=== PATIENT | female | born 1985 | race Two or more races ===

== ENCOUNTER 2020-06-09 09:20 | Outpatient (REF) | payer OTHER, SELFPAY ==
[2020-06-09 11:42] LABS: Hemoglobin 15.5 g/dl (12.0-16.0); Mean Corpuscular HGB Conc 33.7 g/dl (31.0-35.0); Mean Corpuscular Hemoglobin 30.9 pg (27.0-33.0); Mean Corpuscular Volume 91.8 fL (80-98); Mean Platelet Volume 12.1 fL (9.4-12.3); Platelet Count 211 X10*3/uL (160-400); Red Blood Count 5.01 X10*6/uL (4.20-5.50); Red Cell Distribution Width 12.1 % (11.0-16.0); White Blood Count 6.4 X10*3/uL (4.8-10.8)
[2020-06-09 12:38] LABS: TSH reflex Free T4 1.05 mIU/mL (0.32-4.0); Vitamin D 25-OH Total 14.3 ng/mL (>30)
[2020-06-09 12:53] LABS: Alanine Aminotransferase 47 U/L (0-31); Albumin Level 4.5 g/dL (3.5-5.0); Alkaline Phosphatase 67 U/L (39-117); Anion Gap 14 (12-20); Aspartate Amino Transferase 26 U/L (5-31); Bilirubin Direct 0.2 mg/dL (0.0-0.5); Bilirubin Total 0.3 mg/dL (0.0-1.0); Blood Urea Nitrogen 11 mg/dL (9-16); Carbon Dioxide 27 mmol/L (22-29); Chloride 102 mmol/L (96-108); Estimated Glomerular Filt Rate > 60; Glucose Random 117 mg/dL (60-115); Potassium 4.5 mmol/l (3.3-5.1); Sodium 138 mmol/L (135-145); Total Protein 7.8 g/dL (6.5-8.0)
== END 2020-06-09 09:21 | disposition home or self-care (01) ==
LOC: HO.HMGCLDS 09:20
PROVIDERS: PCP Internal Medicine; Visit Provider Nurse Practitioner Family
DX: R53.1 Weakness (principal)
CPT/HCPCS: 36415; 80048; 80076; 82306; 84443; 85027; 86618

== ENCOUNTER 2023-02-21 17:09 | Outpatient (AMB) | payer OTHER, SELFPAY ==
--- NOTE | 2023-02-21 17:10 | MHC.PC.OV ---
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: No Accompanied by: Self / Same As Patient Allergies No Known Allergies [No Known Allergies*] Allergy (Verified 02/21/23 17:17) Medication List - Last Reviewed 02/21/23 by ROXANNA Zamudio levonorgestrel (Mirena) intrauterine Tobacco use date assessed: 02/21/23 Dental Screening Dental Screen Date: 02/21/23 Did you have a dental visit in the last 12 months?: Yes Did you have a dental problem in the last 6 months where you did not have access to dental care?: No Was dental information given to patient?: Patient has dentist HPI HPI Comments History of Present Illness Details This is a 37-year-old female that comes for her physical exam. Last Pap smear was 4 years ago and was normal. Had HPV negative and next Pap smear will be next year with OBGYN. No chest pain or shortness of breath. No change in bowel or bladder habits. Has some anxiety and would like to try hydroxyzine. Patient was advised that hydroxyzine can cause sleepiness. [facility], [facility] Surgical History H/O LEEP Family History (Updated 02/21/23 @ 17:20 by Maci Davidson MD) Mother No problems noted. Father Mental health disorder Essential hypertension Diabetes mellitus Stroke Social History Housing: House Alcohol intake: current Alcohol intake frequency: a few times a month Alcohol type: beer, wine and hard liquor Patient Tobacco Use Status: Never used Tobacco e-Cigarette/Vaping Use: Never Used Second Hand Smoke Exposure: No service: No Current occupational status: employed Cognitive needs: No Hearing needs: No Vision needs: No Questionnaire PHQ-9 Over the last 2 weeks, how often have you been bothered by any of the following problems? 1. Little interest or pleasure in doing things: not at all 2. Feeling down, depressed, or hopeless: not at all 3. Trouble falling or staying asleep, or sleeping too much: not at all 4. Feeling tired or having little energy: not at all 5. Poor appetite or overeating: not at all 6. Feeling bad about yourself - or that you are a failure or have let yourself or your family down: not at all 7. Trouble concentrating on things, such as reading the newspaper or watching television: not at all 8. Moving or speaking so slowly that other people could have noticed. Or the opposite - being so fidgety or restless that you have been moving around a lot more than usual: not at all 9. Thoughts that you would be better off or of hurting yourself in some way: not at all Total score: 0 Depression Screening Interpretation: Negative 52682 - PHQ-9 Billing: Yes Source: Developed by Drs. Mick Miller, Quin Douglas, Negro Viera and colleagues, with an educational theresa from [employer]. ZAC-7 AMB Questionnaire ZAC-7 Date ZAC - 7 assessed: 02/21/23 Feeling nervous, anxious, or on edge: 2 = More than half the days Not being able to stop or control worryin = Several days Worrying too much about different things: 3 = Nearly every day Trouble relaxin = Not at all Being so restless that it is hard to sit still: 1 = Several days Becoming easily annoyed or irritable: 0 = Not at all Feeling afraid as if something awful might happen: 0 = Not at all Total ZAC-7 score (0-4 normal; 5-9 mild; 10-14 moderate; 15-21 severe): 7 Source: Developed by Drs. Mick Miller, Quin Douglas, Negro Viera and colleagues, with an educational theresa from [employer]. ZAC-7 Assessment Billing ZAC-7 Assessment Tool: ZAC-7 Assessment [id number] Review of Systems Const All systems reviewed & are unremarkable except as noted in HPI and below Eyes Reports no additional complaints, Denies change in vision and Denies other visual disturbances Card Denies chest pain at rest, Denies chest pain with activity, Denies edema, Denies irregular heart rhythm, Denies claudication, Denies dyspnea, Denies dyspnea on exertion, Denies orthopnea, Denies paroxysmal nocturnal dyspnea and Denies slow heart rate Resp Denies cough, Denies dyspnea and Denies dyspnea on exertion GI Denies abdominal pain, Denies change in bowel habits, Denies excessive flatus, Denies nausea and Denies vomiting Denies urinary incontinence, Denies urinary hesitancy and Denies urinary urgency Musc Denies abnormal gait, Denies atrophy, Denies deformity and Denies limited range of motion Skin/Breast Denies bleeding lesions, Denies changing lesions and Denies rash Neuro Denies abnormal gait and Denies lack of coordination Physical exam (Primary Care) Vital Signs: Last Vital Signs BP 132/80 02/21/23 17:11 BMI result Body Mass Index 35.3 Tobacco/Smoking Status: Tobacco use Status Tobacco use date assessed 02/15/22 02/15/22 16:06 Patient Tobacco Use Status Never used Tobacco 02/15/22 16:27 Tobacco use type Cigarette 02/15/22 16:27 e-Cigarette/Vaping Use Never Used 02/15/22 16:27 Depression Screening Interpretation: Negative Const Orientation/consciousness: patient oriented x3 HENMT Head: Yes normal to inspection, Yes normocephalic and Yes atraumatic Ears: external ears normal Eyes General: appearance normal, both eyes and all related structures Eyelids: Yes eyelids normal Conjunctivae: conjunctivae normal Neck Neck: Yes normal visual inspection and Yes supple Resp Effort & Inspection: normal respiratory effort Auscultation: clear to auscultation bilaterally Cardio Jugular venous distension: no JVD Rate: regular rate Rhythm: regular rhythm Heart sounds: S1 normal heart sound present and S2 normal heart sound present GI Inspection: Yes normal to inspection Palpation (GI): Soft to palpation and nontender Auscultation: normal bowel sounds Skin General skin exam: no rashes or lesions noted Neuro General: patient oriented x3 and no focal motor deficits Extrem General: Yes full ROM Psych Appearance: grossly normal Assessment and Plan Assessment & Plan (1) Physical exam: Code(s): Z00.00 - Encounter for general adult medical examination without abnormal findings Plan: Repeat in a year Orders: Orders Comprehensive Met. Panel Today Z00.00 - Encounter for general adult medical examination without abnormal findings Lipid Panel Today Z00.00 - Encounter for general adult medical examination without abnormal findings Medications: New hydroxyzine HCl 25 mg PO BID 30 days PRN 60 tabs 1RF itching Coding Level of Care Code Est Pt Prev Care 18-39y(97921) Diagnoses Physical exam Z00.00 Additional Codes ZAC-7 Assessment Billing - ZAC-7 Assessment Tool: ZAC-7 Assessment [id number] ([id number]) Time Spent (min) 32
[2023-02-21 17:11] VITALS: BP 132/80; BMI 35.3
== END 2023-02-21 17:29 | disposition home or self-care (01) ==
LOC: HO.HMGH 17:09
PROVIDERS: PCP Internal Medicine; Visit Provider Internal Medicine
DX: Z00.00 Encounter for general adult medical examination without abnormal findings (principal)
CPT/HCPCS: 99395

== ENCOUNTER 2024-02-26 16:05 | Outpatient (AMB) | payer BC, SELFPAY ==
--- NOTE | 2024-02-26 16:06 | MHC.PC.OV ---
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 Accompanied by: Self / Same As Patient Allergies No Known Allergies [No Known Allergies*] Allergy (Verified 02/26/24 16:20) Medication List - Last Reconciled 02/26/24 by Maci Davidson MD bupropion HCl XL (Wellbutrin XL) 300 mg PO QAM guanfacine ER 1 mg PO QPM hydroxyzine HCl 25 mg PO BID PRN 30 days levonorgestrel (Mirena) intrauterine Tobacco use date assessed: 02/26/24 Dental Screening Dental Screen Date: 02/26/24 Did you have a dental visit in the last 12 months?: Yes Did you have a dental problem in the last 6 months where you did not have access to dental care?: No Was dental information given to patient?: Patient has dentist HPI HPI Comments History of Present Illness Details This is a 38-year-old female that comes for her physical exam. Last Pap smear was 5 years ago. Complains of chest congestion that started 3 weeks ago and I will order an antibiotic. No chest pain or shortness on breath. No fever. [facility]LY [facility] Surgical History History of wisdom tooth extraction H/O LEEP Family History (Updated 02/26/24 @ 16:26 by Maci Davidson MD) Mother Arthritis Father Mental health disorder Essential hypertension Diabetes mellitus Stroke Social History Housing: House Alcohol intake: current Alcohol intake frequency: a few times a month Alcohol type: beer, wine and hard liquor Patient Tobacco Use Status: Never used Tobacco e-Cigarette/Vaping Use: Never Used Second Hand Smoke Exposure: No service: No Current occupational status: employed Current occupational exposures/hazards: No Cognitive needs: No Hearing needs: No Vision needs: No Questionnaire PHQ-9 Over the last 2 weeks, how often have you been bothered by any of the following problems? 1. Little interest or pleasure in doing things: not at all 2. Feeling down, depressed, or hopeless: not at all 3. Trouble falling or staying asleep, or sleeping too much: not at all 4. Feeling tired or having little energy: not at all 5. Poor appetite or overeating: not at all 6. Feeling bad about yourself - or that you are a failure or have let yourself or your family down: not at all 7. Trouble concentrating on things, such as reading the newspaper or watching television: not at all 8. Moving or speaking so slowly that other people could have noticed. Or the opposite - being so fidgety or restless that you have been moving around a lot more than usual: not at all 9. Thoughts that you would be better off or of hurting yourself in some way: not at all Total score: 0 Depression Screening Interpretation: Negative Depression Screening Done: Yes [id number] - PHQ-9 Billing: Yes Source: Developed by Drs. Mick Miller, Quin Douglas, Negro Viera and colleagues, with an educational theresa from [employer]. Thrive Questionnaire Date Thrive assessed: 02/26/24 I am a: Patient What is your living situation today?: I have a steady place to live Within the past 12 months, did the food you bought not last and you didn't have the money to get more?: Never true Within the past 12 months, did you worry whether your food would run out before you got money to buy more?: Never true Do you have trouble paying for medicines?: No Do you have trouble getting transportation to medical appointments?: No Do you have trouble paying your heating and electricity bill?: No Do you have trouble taking care of your child, family member or friend?: No Do you have trouble with day-to-day activities such as bathing, preparing meals, shopping, managing finances, etc.?: No Are you currently unemployed and looking for a job?: No Are you interested in more education?: No Please select the resources that you would like help with: None Currently or been in a relationship where the following occur: No concerns reported THRIVE Score: 0 AUDIT C Alcohol Use Questionnaire (AUDIT-C) 1. How often do you have a drink containing alcohol?: Monthly or less 2. How many drinks containing alcohol do you have on a typical day when you are drinking?: 1 or 2 3. How often do you have six or more drinks on one occasion?: Never Total Score: 1 Score Reviewed/Action Taken: No ZAC-7 AMB Questionnaire ZAC-7 Date ZAC - 7 assessed: 02/21/23 Feeling nervous, anxious, or on edge: 3 = Nearly every day Not being able to stop or control worryin = Not at all Worrying too much about different things: 3 = Nearly every day Trouble relaxin = Not at all Being so restless that it is hard to sit still: 0 = Not at all Becoming easily annoyed or irritable: 0 = Not at all Feeling afraid as if something awful might happen: 0 = Not at all Total ZAC-7 score (0-4 normal; 5-9 mild; 10-14 moderate; 15-21 severe): 6 Source: Developed by Drs. Mick Miller, Quin Douglas, Negro Viera and colleagues, with an educational theresa from [employer]. ZAC-7 Assessment Billing ZAC-7 Assessment Tool: ZAC-7 Assessment 86672 Review of Systems Const All systems reviewed & are unremarkable except as noted in HPI and below Card Denies chest pain at rest, Denies chest pain with activity, Denies edema, Denies irregular heart rhythm, Denies claudication, Denies dyspnea, Denies dyspnea on exertion, Denies orthopnea, Denies paroxysmal nocturnal dyspnea and Denies slow heart rate Resp Denies cough, Denies dyspnea and Denies dyspnea on exertion GI Denies abdominal pain, Denies change in bowel habits, Denies excessive flatus, Denies nausea and Denies vomiting Physical exam (Primary Care) Vital Signs: Last Vital Signs BP 126/82 02/26/24 16:07 BMI result Body Mass Index 34.1 BMI Assessment/Plan discussion: High BMI High, discussed plan: lifestyle, weight reduction, dietary and physical activity Tobacco/Smoking Status: Tobacco use Status Tobacco use date assessed 02/26/24 02/26/24 16:15 Patient Tobacco Use Status Never used Tobacco 02/26/24 16:15 Tobacco use type 02/21/23 17:27 e-Cigarette/Vaping Use Never Used 02/26/24 16:15 PHQ-9: PHQ-9 Score PHQ-9: Total score 0 02/26/24 16:23 Depression Screening Interpretation: Negative Thrive Assessment: Date of Thrive Assessment Date Thrive assessed 02/26/24 02/26/24 16:15 Currently or been in a relationship where the following occur: No concerns reported [facility] Head: Yes normal to inspection, Yes normocephalic and Yes atraumatic Ears: external ears normal Eyes General: appearance normal, both eyes and all related structures Eyelids: Yes eyelids normal Conjunctivae: conjunctivae normal Neck Neck: Yes normal visual inspection and Yes supple Resp Effort & Inspection: normal respiratory effort Auscultation: clear to auscultation bilaterally Cardio Jugular venous distension: no JVD Rate: regular rate Rhythm: regular rhythm Heart sounds: S1 normal heart sound present and S2 normal heart sound present GI Inspection: Yes normal to inspection Palpation (GI): Soft to palpation and nontender Auscultation: normal bowel sounds Skin General skin exam: no rashes or lesions noted Neuro General: no focal motor deficits Extrem General: Yes full ROM Psych Appearance: grossly normal Assessment and Plan Assessment & Plan (1) Physical exam: Code(s): Z00.00 - Encounter for general adult medical examination without abnormal findings Plan: Repeat in a year. (2) URI (upper respiratory infection): Code(s): J06.9 - Acute upper respiratory infection, unspecified Qualifiers: URI type: unspecified URI Qualified Code(s): J06.9 - Acute upper respiratory infection, unspecified Plan: Start doxycycline. Orders: Orders Lipid Panel Today Z00.00 - Encounter for general adult medical examination without abnormal findings Comprehensive [place]. Panel Fast Today Z00.00 - Encounter for general adult medical examination without abnormal findings Referrals [facility] [employer] [facility] Referral Z12.4 - Encounter for screening for malignant neoplasm of cervix Medications: New doxycycline hyclate 100 mg PO BID 10 tabs 0RF 5 days fluconazole may repeat second dose 72 hrs after first dose if symptoms persist 150 mg PO Q3D 2 tabs 0RF 2 doses Coding Level of Care Code Est Pt Level 3 (42328) Est Pt Prev Care 18-39y(81996) Diagnoses Physical exam Z00.00 Upper respiratory tract infection, unspecified type J06.9 URI type: unspecified URI Additional Codes ZAC-7 Assessment Billing - ZAC-7 Assessment Tool: ZAC-7 Assessment 31339 ([id number]) Time Spent (min) 33
[2024-02-26 16:07] VITALS: BP 126/82; BMI 34.1
== END 2024-02-26 16:32 | disposition home or self-care (01) ==
PROVIDERS: PCP Internal Medicine; Visit Provider Internal Medicine
DX: Z00.00 Encounter for general adult medical examination without abnormal findings (principal); J06.9 Acute upper respiratory infection, unspecified
CPT/HCPCS: 99213; 99395

== ENCOUNTER 2024-03-17 07:57 | Outpatient (REF) | payer BC, SELFPAY ==
--- NOTE | 2024-03-17 | ECG_ITS ---
Test Reason : f90.9 Blood Pressure : / mmHG Vent. Rate : 082 BPM Atrial Rate : 082 BPM P-R Int : 142 ms QRS Dur : 072 ms QT Int : 366 ms P-R-T Axes : 054 010 028 degrees QTc Int : 427 ms Normal sinus rhythm with sinus arrhythmia Normal ECG No previous ECGs available Referred By: Maci Davidson Electronically Signed By:PADMINI ALVARES
[2024-03-17 09:12] LABS: Amphetamine Screen Urine Not Detected (Not Detect); Barbiturates, Urine Not Detected (Not Detect); Benzodiazepines Screen Urine Not Detected (Not Detect); Buprenorphine Scr Not Detected (Not Detect); Cannabinoid Screen Urine Not Detected (Not Detect); Cocaine Screen Urine Not Detected (Not Detect); Fentanyl, urine Not Detected (Not Detect); Methadone Screen, Urine Not Detected (Not Detect); Opiate Screen Urine Not Detected (Not Detect); Oxycodone Screen Urine Not Detected (Not Detect); Phencyclidine Screen Urine Not Detected (Not Detect)
[2024-03-17 09:45] LABS: Alanine Aminotransferase 47 U/L (0-31); Alkaline Phosphatase 67 U/L (39-117); Anion Gap 10 (12-20); Aspartate Amino Transferase 29 U/L (5-31); Bilirubin Total 0.5 mg/dL (0.0-1.0); Blood Urea Nitrogen 12 mg/dL (9-16); Calcium 8.7 mg/dL (8.4-10.2); Carbon Dioxide 27 mmol/L (22-29); Chloride 102 mmol/L (96-108); Cholesterol 162 mg/dL (<200); Estimated Glomerular Filt Rate > 60; Glucose Fasting 228 mg/dL (60-99); HDL Cholesterol 45 mg/dL (>40); LDL Cholesterol Calculated 94 mg/dL (<100); Potassium 4.1 mmol/L (3.3-5.1); Sodium 135 mmol/L (135-145); Total Protein 7.3 g/dL (6.5-8.0); Triglycerides 116 mg/dL (<150)
== END 2024-03-17 07:58 | disposition home or self-care (01) ==
LOC: HO.LAB 07:57
PROVIDERS: Registered Nurse Psychiatric/Mental Health; PCP Internal Medicine; Visit Provider Internal Medicine
DX: F90.9 Attention-deficit hyperactivity disorder, unspecified type (principal); Z00.00 Encounter for general adult medical examination without abnormal findings
CPT/HCPCS: 36415; 80053; 80061; 80307; 93005

== ENCOUNTER → 2024-03-17 08:38 | Outpatient (BNV) | payer BC, SELFPAY | PROVIDERS: PCP Internal Medicine; Visit Provider Internal Medicine | DX: Z00.00 Encounter for general adult medical examination without abnormal findings (principal) | CPT/HCPCS: 93010 ==

== ENCOUNTER 2024-03-25 07:50 | Outpatient (AMB) | payer BC, SELFPAY ==
[2024-03-25 07:54] VITALS: BP 126/82; BMI 34.6
--- NOTE | 2024-03-25 07:54 | A.OFFPC_ITS ---
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 Accompanied by: Self / Same As Patient Allergies No Known Allergies [No Known Allergies*] Allergy (Verified 03/25/24 08:01) Medication List - Last Reconciled 03/25/24 by Maci aDvidson MD blood sugar diagnostic (FreeStyle Lite Strips) Use 1 test strip once a day blood-glucose meter (FreeStyle Lite Meter kit) As directed bupropion HCl XL (Wellbutrin XL) 300 mg PO QAM hydroxyzine HCl 25 mg PO BID PRN 30 days lancets (FreeStyle Lancets) Use 1 lancet once a day levonorgestrel (Mirena) intrauterine metformin 500 mg PO BID 90 days Tobacco use date assessed: 02/26/24 Dental Screening Dental Screen Date: 02/26/24 HPI HPI Comments History of Present Illness Details This is a 39-year-old female with recently diagnosed diabetes mellitus that comes today complaining of a chronic cough that has been present for about 2-3 months associated with some phlegm. Denies any fever or chest congestion. She has tried different antihistamines and antibiotic with no significant relief. Denies any heartburn. There is no time of the day in which cough worsens. No aggravating or relieving factors. I will order chest x-ray but her lungs are clear. Will refer her to pulmonology. Her A1c is elevated and she just started metformin 2 days ago with no side effects. She will book an appointment for an tube draw helper for diabetic eye exam. Her sugar today fasting was 187. Her LDL is not on goal and dietary changes were advised for now. She is obese with a BMI of 34.6 and was advised to do diet and exercise to reach BMI goal less than 30. She also complains of stress urinary incontinence when coughing that has been more prominent for the past 2 months. No chest pain or shortness on breath. She would like to see Urology for her incontinence. [facility] Surgical History History of wisdom tooth extraction H/O LEEP Family History Mother Arthritis Father Mental health disorder Essential hypertension Diabetes mellitus Stroke Social History Housing: House Alcohol intake: current Alcohol intake frequency: a few times a month Alcohol type: beer, wine and hard liquor Patient Tobacco Use Status: Never used Tobacco e-Cigarette/Vaping Use: Never Used Second Hand Smoke Exposure: No service: No Current occupational status: employed Current occupational exposures/hazards: No Cognitive needs: No Hearing needs: No Vision needs: No Questionnaire Thrive Questionnaire Date Thrive assessed: 02/26/24 ZAC-7 AMB Questionnaire ZAC-7 Date ZAC - 7 assessed: 02/21/23 Source: Developed by Drs. Mick Miller, Quin Douglas, Negro Viera and colleagues, with an educational theresa from [employer]. Review of Systems Const All systems reviewed & are unremarkable except as noted in HPI and below Card Denies chest pain at rest, Denies chest pain with activity, Denies edema, Denies irregular heart rhythm, Denies claudication, Denies dyspnea, Denies dyspnea on exertion, Denies orthopnea, Denies paroxysmal nocturnal dyspnea and Denies slow heart rate Resp Reports cough, Denies dyspnea and Denies dyspnea on exertion Physical exam (Primary Care) Vital Signs: Last Vital Signs BP 126/82 03/25/24 07:54 BMI result Body Mass Index 34.6 BMI Assessment/Plan discussion: High BMI High, discussed plan: lifestyle, weight reduction, dietary and physical activity Tobacco/Smoking Status: Tobacco use Status Tobacco use date assessed 02/26/24 03/25/24 07:57 Patient Tobacco Use Status Never used Tobacco 03/25/24 07:57 Tobacco use type 02/21/23 17:27 e-Cigarette/Vaping Use Never Used 03/25/24 07:57 Thrive Assessment: Date of Thrive Assessment Date Thrive assessed 02/26/24 03/25/24 07:57 Resp Effort & Inspection: normal respiratory effort Auscultation: clear to auscultation bilaterally Cardio Jugular venous distension: no JVD Rate: regular rate Rhythm: regular rhythm Heart sounds: S1 normal heart sound present and S2 normal heart sound present Extrem General: Yes full ROM Results AMB Hemoglobin A1c AMB Hemoglobin A1c 8.0 % Last Edit by ROXANNA Zamudio on 03/25/24 08:1 2 Results Reviewed Results Reviewed: Laboratory Last Values Hgb A1c (Clinic) 8.0 % (4.0-6.0) H 03/25/24 08:03 Assessment and Plan Assessment & Plan (1) Chronic cough: Code(s): R05.3 - Chronic cough Plan: Chest x-ray ordered. Start Tessalon Perles. Follow-up with pulmonology. (2) Diabetes mellitus: Code(s): E11.9 - Type 2 diabetes mellitus without complications Plan: Continue metformin. A1c goal is equal or less than 7%. Diabetic eye exam yearly. (3) Class 1 obesity with body mass index (BMI) of 34.0 to 34.9 in adult: Code(s): E66.9 - Obesity, unspecified; Z68.34 - Body mass index [BMI] 34.0-34.9, adult Plan: Start diet and exercise. BMI goal is less than 30. (4) JAXON (stress urinary incontinence, female): Code(s): N39.3 - Stress incontinence (female) (male) Plan: Referred to urology. Continue Kegel exercises. Orders: Orders XR chest 2V Today R05.3 - Chronic cough AMB Hemoglobin A1c Today E11.9 - Type 2 diabetes mellitus without complications Referrals Urology Referral N39.3 - Stress incontinence (female) (male) Pulmonology Referral R05.3 - Chronic cough Medications: New benzonatate 100 mg PO BID 5 days PRN 10 caps 0RF cough Coding Level of Care Code Est Pt Level 4 (61135) Complex EM visit Add On G2211 Diagnoses Chronic cough R05.3 Diabetes mellitus E11.9 Class 1 obesity with body mass index (BMI) of 34.0 to 34.9 in adult E66.9; Z68.34 JAXON (stress urinary incontinence, female) N39.3 Time Spent (min) 24
== END 2024-03-25 08:24 | disposition home or self-care (01) ==
PROVIDERS: PCP Internal Medicine; Visit Provider Internal Medicine
DX: R05.3 Chronic cough (principal); E11.9 Type 2 diabetes mellitus without complications; E66.9 Obesity, unspecified; Z68.34 Body mass index [BMI] 34.0-34.9, adult; N39.3 Stress incontinence (female) (male)
CPT/HCPCS: 83036; 99214

== ENCOUNTER 2024-03-25 08:30 | Outpatient (REF) | payer BC, SELFPAY ==
--- NOTE | ~2024-03-25 | XR_ITS ---
EXAMINATION: XR CHEST 2 VIEWS CLINICAL INFORMATION: Chronic cough. COMPARISON: Chest radiographs dated 08/23/2015. TECHNIQUE: Frontal and lateral views of the chest were obtained. FINDINGS: The heart, great vessels, pulmonary vasculature and mediastinum are normal. The lungs show no focal infiltrate, effusion or pneumothorax. There is no acute osseous abnormality. XR/XR chest 2V IMPRESSION: No active cardiopulmonary disease. Electronically signed by: Adair Ruffin MD 04/16/2024 06:50 PM EDT
== END 2024-03-25 08:31 | disposition home or self-care (01) ==
LOC: HO.XRAY 08:30
PROVIDERS: PCP Internal Medicine; Visit Provider Internal Medicine
DX: R05.3 Chronic cough (principal)
CPT/HCPCS: 71046

== ENCOUNTER 2024-04-13 10:26 | Outpatient (REF) | payer BC, SELFPAY ==
[2024-04-13 11:46] LABS: MANUAL DIFF FLAG NO
[2024-04-13 12:04] LABS: Basophils Percent Auto 0.4 % (0-2); Eosinophils Absolute Auto 0.1 X10*3/uL (0.0-0.4); Eosinophils Percent Auto 0.7 % (0-4); Hematocrit 44.3 % (37.0-47.0); Imm Gran Abs Auto 0.02 X10*3/uL (0.00-0.03); Imm Gran Pct Auto 0.3 % (0.0-0.4); Lymphocytes Absolute Auto 1.6 X10*3/uL (1.2-4.9); Lymphocytes Percent Auto 22.9 % (20-40); Mean Corpuscular HGB Conc 33.9 g/dl (31.0-35.0); Mean Corpuscular Hemoglobin 30.7 pg (27.0-33.0); Mean Corpuscular Volume 90.6 fL (80.0-98.0); Mean Platelet Volume 11.5 fL (9.4-12.3); Monocytes Absolute Auto 0.4 X10*3/uL (0.1-1.2); Monocytes Percent Auto 5.6 % (2-11); Neutrophils Percent Auto 70.1 % (45-73); Platelet Count 226 X10*3/uL (160-400); Red Blood Count 4.89 X10*6/uL (4.20-5.50); Red Cell Distribution Width 12.1 % (11.0-16.0); White Blood Count 7.1 X10*3/uL (4.8-10.8)
[2024-04-14 21:53] LABS: Class Alternaria alternata 0; Class Aspergillus fumigatus 0; Class Bermuda Grass 0; Class Birch 0; Class Cat Dander 0; Class Cladosporium herbarum 0; Class Cockroach 0; Class Common Ragweed 0; Class Cottonwood 0; Class Derm. pterony 0; Class Dermatophagoides farinae 0; Class Dog Dander 0; Class Elm 0; Class Maple Box Elder 0; Class Mountain Cedar 0; Class Mouse Urine Protein 0; Class Mugwort 0; Class Oak 0; Class Penicillium crysogenum 0; Class Rough Pigweed 0; Class Sheep Sorrel 0; Class Sycamore 0; Class Timothy Grass 0; Class Walnut Tree 0; Class White Ash 0; Class White Mulberry 0; D001 IgE D pteronyssinus <0.10 kU/L; D002 - IgE D farinae <0.10 kU/L; E001 - IgE Cat Dander <0.10 kU/L; E005 - IgE Dog Dander <0.10 kU/L; E072-IgE Mouse Urine <0.10 kU/L; G002 IgE Bermuda Grass <0.10 kU/L; G006 - IgE Timothy Grass <0.10 kU/L; I006-IgE Cockroach, German <0.10 kU/L; Immunoglobulin E 17 kU/L (<OR=114); M001 IgE Penicillium chrysogen <0.10 kU/L; M002 - IgE Cladosporium herbar <0.10 kU/L; M003 - IgE Aspergillus fumigat <0.10 kU/L; M006 - IgE Alternaria alternat <0.10 kU/L; T001 IgE Maple/Box Elder <0.10 kU/L; T003 IgE Common Silver Birch <0.10 kU/L; T006 - IgE Cedar, Mountain <0.10 kU/L; T007 - IgE Oak, White <0.10 kU/L; T008 IgE Elm, American <0.10 kU/L; T010 - IgE Walnut <0.10 kU/L; T011 - IgE Maple Leaf Sycamore <0.10 kU/L; T014 - IgE Cottonwood <0.10 kU/L; T015 - IgE Ash, White <0.10 kU/L; T070 - IgE White Mulberry <0.10 kU/L; W001 - IgE Ragweed, Short <0.10 kU/L; W006 - IgE Mugwort <0.10 kU/L; W014 IgE Pigweed, Common <0.10 kU/L; W018 IgE Sheep Sorrel <0.10 kU/L
== END 2024-04-13 10:27 | disposition home or self-care (01) ==
LOC: HO.LAB 10:26
PROVIDERS: PCP Internal Medicine; Referring Provider Internal Medicine; Visit Provider Nurse Practitioner Family
DX: Z91.09 Other allergy status, other than to drugs and biological substances (principal)
CPT/HCPCS: 36415; 82785; 85025; 86003

== ENCOUNTER 2024-04-13 10:26 | Outpatient (AMB) | payer BC, SELFPAY ==
--- NOTE | 2024-04-12 21:03 | MHC.OFFVIS ---
Vital Signs 04/13/24 10:40 Height 5 ft 9 in Weight 230 lb 6.129 oz BMI 34.0 BP 130/96 H Blood Pressure Location Rt brachial Position Sitting Pulse 102 H Pulse Source Pulse Oximeter Pulse Oximetry (%) 99 Oxygen Delivery Method Room Air Intake Visit Reasons: Chronic cough Allergies No Known Allergies [No Known Allergies*] Allergy (Verified 04/13/24 10:43) HPI HPI Chronic cough: Details: Delfino is a pleasant 39 year old female, never smoker, with underlying DMII. She was referred by PCP for pulmonary evaluation. She reports productive cough with whitish sputum for the last 2 months. She denies chest tightness, wheezing or dyspnea. She denies any fevers, chills or chest congestion. She denies any aggravating or relieving factors. She was trialed on antihistamines as well as flonase and doxycyline, without relief. She did note some relief with tessalon perles. She denies prior h/o asthma. She denies any GERD symptoms. She denies any post nasal drip. CXR performed however not officially read. She reports seasonal allergies, no recent allergy testing. She denies any occupational exposures. She denies any pertinent family history. [facility] Surgical History History of wisdom tooth extraction H/O LEEP Family History Mother Arthritis Father Mental health disorder Essential hypertension Diabetes mellitus Stroke Social History Housing: House Alcohol intake: current Alcohol intake frequency: a few times a month Alcohol type: beer, wine and hard liquor Patient Tobacco Use Status: Never used Tobacco e-Cigarette/Vaping Use: Never Used Second Hand Smoke Exposure: No service: No Current occupational status: employed Current occupational exposures/hazards: No Cognitive needs: No Hearing needs: No Vision needs: No Review of Systems Const Denies chills, Denies excessive sweating, Denies fever(s), Denies headache(s) and Denies night sweats Eyes Denies dry eyes, Denies irritation and Denies itchy eyes ENT Reports Normal hearing present, Denies headache(s), Denies nasal congestion, Denies nasal discharge, Denies post nasal drip and Denies sore throat Card Denies chest pain, Denies chest pain at rest, Denies chest pain with activity, Denies claudication, Denies leg edema, Denies dyspnea, Denies dyspnea on exertion, Denies orthopnea and Denies paroxysmal nocturnal dyspnea Resp Denies chest congestion, Reports cough, Denies excessive phlegm production, Denies pain on inspiration, Denies pain with cough, Denies dyspnea, Denies dyspnea on exertion, Denies stridor and Denies wheezing Musc Denies myalgias Neuro Reports Normal hearing present and Denies headache(s) Endo Denies excessive sweating Ajay/Lymph Denies lymphadenopathy Aller/Immun Denies itchy eyes, Denies seasonal rhinorrhea and Denies wheezing Physical Exam Vital Signs: Last Vital Signs Pulse 102 H 04/13/24 10:40 BP 130/96 H 04/13/24 10:40 Pulse Ox 99 04/13/24 10:40 Oxygen Delivery Method Room Air 04/13/24 10:40 BMI result Body Mass Index 34.0 Const General: cooperative, healthy appearing, comfortable, no acute distress, well developed and alert Nutritional Appearance: obese Orientation/consciousness: patient oriented x3 Limitations: no limitations HEENT Head: Yes normal to inspection, Yes normocephalic and Yes atraumatic Ears: hearing grossly normal bilaterally and external ears normal Eyes General: appearance normal, both eyes and all related structures Eyelids: Yes eyelids normal Sclerae: sclerae normal EOM: EOMs intact bilaterally Neck Neck: Yes normal visual inspection and Yes no lymphadenopathy Lymphatic: no lymphadenopathy noted Chest Chest palpation & inspection: normal inspection of the chest Resp Other: post exhalation cough Effort & Inspection: normal respiratory effort, able to speak in complete sentences, no audible wheezes, Actively coughing, no stridor, not tachypneic, no tripod positioning and no use of accessory muscles Auscultation: diminished lung sounds Cardio Jugular venous distension: no JVD Rate: regular rate Rhythm: regular rhythm Skin Other: warm, dry General skin exam: no rashes or lesions noted Neuro General: patient oriented x3 Cranial nerves: Yes Normal hearing present Cognition (Neuro): normal cognition Gait exam (Neuro): Normal gait present Extrem General: Yes normal to inspection, Yes capillary refill normal, Yes no clubbing, cyanosis or edema and Yes no pedal edema Psych Appearance: grossly normal and well kempt Speech and movement: Normal speech and movement present and Clear speech present Affect: normal affect Attitude: cooperative Thought process: Normal thought process present Thought content: Normal thought content present Insight: Good insight present (Psych) Judgement: Good judgement present (Psych) Assessment & Plan Assessment & Plan (1) Reactive airway disease: Code(s): J45.909 - Unspecified asthma, uncomplicated Category: Medical (2) Chronic cough: Code(s): R05.3 - Chronic cough Category: Medical (3) Environmental allergies: Code(s): Z91.09 - Other allergy status, other than to drugs and biological substances Category: Medical Plan Delfino presents for evaluation for persistent cough minimal responsive to antihistamines, flonase, and doxycycline. There may be a component of asthma/RAD, will send for PFT and trial albuterol PRN. Will send for RAST as she notes seasonal alleriges. Given postexhalation on exam, will give prednisone. Consider chest CT once CXR resulted. All questions were answered and patient is in agreement of plan. Will follow up to review results or sooner if needed. Orders: Orders Complete Blood Count Auto Diff Today Z91.09 - Other allergy status, other than to drugs and biological substances Resp Allergy Profile Region I Today Z91.09 - Other allergy status, other than to drugs and biological substances Immunoglobulin E Today Z91.09 - Other allergy status, other than to drugs and biological substances PFT pulmonary function test Today R05.3 - Chronic cough Medications: New albuterol sulfate 90 mcg/actuation 2 puffs inhalation Q4-6H PRN 1 ea 2RF shortness of breath or wheezing prednisone 40 mg (2 x 20 mg) PO DAILY 10 tabs 0RF Coding Level of Care Code New Pt Level 3 (85727) Diagnoses Reactive airway disease J45.909 Chronic cough R05.3 Environmental allergies Z91.09
[2024-04-13 10:40] VITALS: BP 130/96; PULSE 102; O2SAT 99; BMI 34.0
== END 2024-04-13 11:13 | disposition home or self-care (01) ==
PROVIDERS: PCP Internal Medicine; Referring Provider Internal Medicine; Visit Provider Nurse Practitioner Family
DX: J45.909 Unspecified asthma, uncomplicated (principal); R05.3 Chronic cough; Z91.09 Other allergy status, other than to drugs and biological substances
CPT/HCPCS: 99203

== ENCOUNTER 2024-05-06 15:52 | Outpatient (REF) | payer BC, SELFPAY ==
--- NOTE | 2024-05-06 16:26 | PFT_ITS ---
Flows: FEV1: 93 % of predicted at 3.35 L FVC: 95 % of predicted at 4.20 L FEV1/FVC: 80 % Bronchodilator response: Present in small to medium airways only Volumes: Total lung capacity: 87 % of predicted at 5.36 L Residual volume: 77 % of predicted at 1.17 L Slow vital capacity: 90 % of predicted at 4.20 L Expiratory reserve volume: 69 % of predicted at 1.07 L Diffusion capacity: Normal Impression: No obstructive or restrictive ventilatory defect. Bronchodilator response present in small to medium airways only. MTDD
== END 2024-05-06 15:53 | disposition home or self-care (01) ==
LOC: HO.RESP 15:52
PROVIDERS: PCP Internal Medicine; Visit Provider Nurse Practitioner Family
DX: R05.3 Chronic cough (principal)
CPT/HCPCS: 94010; 94640; 94727; 94729

== ENCOUNTER → 2024-05-06 16:26 | Outpatient (BNV) | payer BC, SELFPAY | PROVIDERS: PCP Internal Medicine; Visit Provider Internal Medicine Pulmonary Disease | DX: R05.3 Chronic cough (principal) | CPT/HCPCS: 94060; 94727; 94729 ==

== ENCOUNTER 2024-05-19 07:55 | Outpatient (AMB) | payer BC, SELFPAY ==
--- NOTE | 2024-05-19 08:10 | A.OFFVIS_ITS ---
Intake Visit Reasons: stress incontinence Allergies No Known Allergies [No Known Allergies*] Allergy (Verified 05/19/24 08:43) Medication List - Last Reconciled 05/19/24 by NANETTE Hobson albuterol sulfate 90 mcg/actuation 2 puffs inhalation Q4-6H PRN blood sugar diagnostic (FreeStyle Lite Strips) Use 1 test strip once a day blood-glucose meter (FreeStyle Lite Meter kit) As directed hydroxyzine HCl 25 mg PO BID PRN 30 days lancets (FreeStyle Lancets) Use 1 lancet once a day levonorgestrel (Mirena) intrauterine metformin 500 mg PO BID 90 days methylphenidate HCl ER (Concerta) 27 mg PO DAILY prednisone 40 mg (2 x 20 mg) PO DAILY HPI Comments Details: Delfino is a very pleasant 39-year-old female patient of Dr. Farr. She has a past medical history of ADD and diabetes. She presents to the office today as a new patient for stress incontinence. In discussion with the patient today she reports symptoms have been present since her early 30s. She reports feeling stress incontinence presented 6-8 years ago. She does report having had 1 vaginal and labor was quick. She reports initially when she discussed this issue with her PCP 6-8 years ago she tried a medication however does not recall the name. She reports having had no benefit and therefore stopped taking the medication. She reports having followed up with her PCP for annual physical and has recently been diagnosed with diabetes and has started metformin and is trying to manage with diet control. She otherwise denies urinary urgency, urinary frequency, nocturia, hematuria, dysuria, foul smelling urine, changes to urinary stream, flank pain, fever, and or chills. In office urinalysis results reviewed with the patient today. We discussed at length potential causes of stress incontinence as well as further treatment options. Risks and benefits of these treatment options were discussed. Discussed obtaining retroperitoneal ultrasound for further assessment evaluation. She otherwise offers no other issues or concerns at this time. [facility] Surgical History History of wisdom tooth extraction H/O LEEP Family History Mother Arthritis Father Mental health disorder Essential hypertension Diabetes mellitus Stroke Social History Housing: House Alcohol intake: current Alcohol intake frequency: a few times a month Alcohol type: beer, wine and hard liquor Patient Tobacco Use Status: Never used Tobacco e-Cigarette/Vaping Use: Never Used Second Hand Smoke Exposure: No service: No Current occupational status: employed Current occupational exposures/hazards: No Cognitive needs: No Hearing needs: No Vision needs: No Review of Systems Const All systems reviewed & are unremarkable except as noted in HPI and below Physical Exam Const General: cooperative, healthy appearing, comfortable, no acute distress, well developed, alert and awake Orientation/consciousness: patient oriented x3 Limitations: no limitations HEENT Head: Yes normal to inspection, Yes normocephalic and Yes atraumatic Ears: hearing grossly normal bilaterally Eyes General: appearance normal, both eyes and all related structures Neck Neck: Yes normal visual inspection and Yes trachea midline Chest Chest palpation & inspection: normal inspection of the chest Resp Effort & Inspection: normal respiratory effort and able to speak in complete sentences Cardio Rate: regular rate GI Inspection: Yes normal to inspection General: Yes no CVA tenderness Back/Spine/Pelvis Back: no CVA tenderness Skin General skin exam: no rashes or lesions noted Neuro General: patient oriented x3 Extrem General: Yes normal to inspection Psych Appearance: grossly normal and well kempt Mental Status: mental status grossly normal Speech and movement: Normal speech and movement present and Clear speech present Affect: normal affect Attitude: cooperative Thought process: Normal thought process present Thought content: Normal thought content present Insight: Fair insight present (Psych) Judgement: Fair judgement present (Psych) Office Procedures Post Void Residual Post Residual Void Post Void Residual (PVR): 21 [id number] Void Residual by ultrasound Results AMB Urinalysis, Automated UA Leukoctes 0 Therese/uL Last Edit by Stefan Snow LPN on 05/19/24 08:11 UA Nitrite Negative Last Edit by Stefan Snow LPN on 05/19/24 08:11 UA Urobilinogen 0.2 mg/dL Last Edit by Stefan Snow LPN on 05/19/24 08:11 UA Protein 15 mg/dL Last Edit by Stefan Snow LPN on 05/19/24 08:11 UA pH 5.5 Last Edit by Stefan Snow LPN on 05/19/24 08:11 UA Blood 0 Dameon/uL Last Edit by Stefan Snow LPN on 05/19/24 08:11 UA Specific [place] 1.020 Last Edit by Stefan Snow LPN on 05/19/24 08:11 UA Ketone Negative Last Edit by Stefan Sonw LPN on 05/19/24 08:11 UA Bilirubin 0 mg/dL Last Edit by Stefan Snow LPN on 05/19/24 08:11 UA Glucose 1000 mg/dL Last Edit by Stefan Snow LPN on 05/19/24 08:11 Results Reviewed Results Reviewed: Laboratory Last Values Urine pH (Auto) 5.5 05/19/24 08:10 Specific [place] (Auto) 1.020 05/19/24 08:10 Urine Protein (Auto) 15 mg/dL 05/19/24 08:10 Glucose (UA)(Auto) 1000 mg/dL 05/19/24 08:10 Urine Ketones (Auto) Negative 05/19/24 08:10 Urine Blood (Auto) 0 Dameon/uL 05/19/24 08:10 Urine Nitrite (Auto) Negative 05/19/24 08:10 Urine Bilirubin (Auto) 0 mg/dL 05/19/24 08:10 Urine Urobilinogen (Auto) 0.2 mg/dL 05/19/24 08:10 Leukocyte Esterase (Auto) 0 Therese/uL 05/19/24 08:10 Assessment & Plan Assessment & Plan (1) JAXON (stress urinary incontinence, female): Code(s): N39.3 - Stress incontinence (female) (male) Category: Medical Plan In office urinalysis results reviewed with the patient today; as noted above. Information provided for pelvic floor ex.ercises Will obtain retroperitoneal ultrasound for further assessment evaluation. Discussed, educated, and stressed the importance of managing diabetes for improvement in lower urinary tract symptoms as well as overall health and well- being. Discussed further treatment options of stress incontinence; risks and benefits of these interventions were discussed. We discussed bladder triggers/irritants Will schedule for in office urodynamics Follow-up with imaging to be completed prior; or sooner with any issues, concerns, and or questions. Orders: Orders AMB Urinalysis Automated Today N39.3 - Stress incontinence (female) (male) AMB Post Void Residual by ultrasound Today N39.3 - Stress incontinence (female) (male) US retroperitoneal comp Today N39.3 - Stress incontinence (female) (male) Patient Instructions: The patient had an opportunity to ask questions regarding the treatment plan. All questions were answered. Physical exam, labs, and imaging were discussed and reviewed in detail. As well as risks, benefits, and discussion of treatment choices. No major barriers to understanding were identified. The patient expressed understanding and agreement with the above treatment plan. The patient was made aware they should contact our office by phone for worsening of their current condition, the appearance of new symptoms, or with any questions or concerns. Compliance is encouraged with any medications and follow up testing that is ordered. It is a privilege to be allowed the opportunity to participate in? your urological care.? Again, if you have any questions or concerns If you have any questions or concerns please do not hesitate to contact me. The office is [phone]. This note is constructed using voice recognition software. While every effort has been made to ensure accuracy production truck driver errors may have been included. Yours sincerely, NANETTE Hobson Coding Level of Care Code New Pt Level 4 (45898) Diagnoses JAXON (stress urinary incontinence, female) N39.3 CPT Codes Post Residual Void - PVR CPT Code: 60393-[id number] Void Residual by ultrasound ([id number]) Time Spent (min) 35
== END 2024-05-19 08:59 | disposition home or self-care (01) ==
PROVIDERS: PCP Internal Medicine; Visit Provider Nurse Practitioner Family
DX: N39.3 Stress incontinence (female) (male) (principal)
CPT/HCPCS: 99204

== ENCOUNTER → 2024-05-19 07:55 | Outpatient (BNVA) | payer BC, SELFPAY | PROVIDERS: PCP Internal Medicine; Visit Provider Nurse Practitioner Family | DX: N39.3 Stress incontinence (female) (male) (principal) | CPT/HCPCS: 51798; 81003 ==

== ENCOUNTER 2024-05-22 15:57 | Outpatient (REF) | payer BC, SELFPAY ==
--- NOTE | ~2024-05-22 | US_ITS ---
EXAMINATION: US RETROPERITONEAL COMPLETE (RENAL) CLINICAL INFORMATION: Stress incontinence. COMPARISON: Ultrasound abdomen complete 06/11/2019. TECHNIQUE: Real-time imaging of the kidneys and bladder. FINDINGS: RIGHT KIDNEY: 12.7 x 5.5 x 4.7 cm (SAG x AP x TRV). The kidney is normal in size, contour, and echogenicity. Renal cortical thickness is normal. No calculi or focal parenchymal lesions. No hydronephrosis. LEFT KIDNEY: 12.9 x 6.8 x 4.6 cm (SAG x AP x TRV). The kidney is normal in size, contour, and echogenicity. Renal cortical thickness is normal. No calculi or focal parenchymal lesions. No hydronephrosis. BLADDER: Well distended and normal. Bilateral ureteral jets are demonstrated. Prevoid bladder volume is 248 mL. Postvoid bladder volume is 18.4 mL. US/US retroperitoneal comp IMPRESSION: Normal exam. Electronically signed by: Eze Wilkinson MD 06/19/2024 01:53 PM EST
== END 2024-05-22 15:58 | disposition home or self-care (01) ==
LOC: HO.US 15:57
PROVIDERS: PCP Internal Medicine; Visit Provider Nurse Practitioner Family
DX: N39.3 Stress incontinence (female) (male) (principal)
CPT/HCPCS: 76770

== ENCOUNTER → 2024-05-22 15:59 | Outpatient (BNV) | payer BC, SELFPAY | PROVIDERS: PCP Internal Medicine; Visit Provider Radiology Diagnostic Radiology | DX: N39.3 Stress incontinence (female) (male) (principal) | CPT/HCPCS: 76770 ==

== ENCOUNTER 2024-05-25 15:56 | Outpatient (AMB) | payer BC, SELFPAY ==
[2024-05-25 15:59] VITALS: BP 118/90; PULSE 91; O2SAT 99; BMI 33.0
--- NOTE | 2024-05-25 15:59 | A.OFFVIS_ITS ---
Vital Signs 05/25/24 15:59 Height 5 ft 9 in Weight 223 lb 12.307 oz BMI 33.0 BP 118/90 H Blood Pressure Location Lt brachial Position Sitting Pulse 91 Pulse Source Pulse Oximeter Pulse Oximetry (%) 99 Oxygen Delivery Method Room Air Intake Visit Reasons: Cough/PFT Follow Up Allergies No Known Allergies [No Known Allergies*] Allergy (Verified 05/25/24 16:02) HPI HPI Cough/PFT Follow Up: Details: Delfino is a pleasant 39 year old female, never smoker, with underlying DMII. She was initially referred for persistent productive cough for 2 months with no prior history of asthma. She had trialed multiple medications including antihistamines, Flonase and doxycycline with minimal relief. At the last visit she had persistent post exploration cough and was treated with prednisone. She reports complete resolution of cough and denies any dyspnea, chest tightness, or wheezing. She has a prescription for albuterol however has not required in quite some time. Today she presents to review PFT results. [facility] Surgical History History of wisdom tooth extraction H/O LEEP Family History Mother Arthritis Father Mental health disorder Essential hypertension Diabetes mellitus Stroke Social History Housing: House Alcohol intake: current Alcohol intake frequency: a few times a month Alcohol type: beer, wine and hard liquor Patient Tobacco Use Status: Never used Tobacco e-Cigarette/Vaping Use: Never Used Second Hand Smoke Exposure: No service: No Current occupational status: employed Current occupational exposures/hazards: No Cognitive needs: No Hearing needs: No Vision needs: No Review of Systems Const Denies chills, Denies excessive sweating, Denies fever(s), Denies headache(s) and Denies night sweats Eyes Denies dry eyes, Denies irritation and Denies itchy eyes ENT Reports Normal hearing present, Denies headache(s), Denies nasal congestion, Denies nasal discharge, Denies post nasal drip and Denies sore throat Card Denies chest pain, Denies chest pain at rest, Denies chest pain with activity, Denies claudication, Denies leg edema, Denies dyspnea, Denies dyspnea on exertion, Denies orthopnea and Denies paroxysmal nocturnal dyspnea Resp Denies chest congestion, Denies cough, Denies excessive phlegm production, Denies pain on inspiration, Denies pain with cough, Denies dyspnea, Denies dyspnea on exertion, Denies stridor and Denies wheezing Musc Denies myalgias Neuro Reports Normal hearing present and Denies headache(s) Endo Denies excessive sweating Ajay/Lymph Denies lymphadenopathy Aller/Immun Denies itchy eyes, Denies seasonal rhinorrhea and Denies wheezing Physical Exam Vital Signs: Last Vital Signs Pulse 91 05/25/24 15:59 BP 118/90 H 05/25/24 15:59 Pulse Ox 99 05/25/24 15:59 Oxygen Delivery Method Room Air 05/25/24 15:59 BMI result Body Mass Index 33.0 Const General: cooperative, healthy appearing, comfortable, no acute distress, well developed and alert Nutritional Appearance: obese Orientation/consciousness: patient oriented x3 Limitations: no limitations HEENT Head: Yes normal to inspection, Yes normocephalic and Yes atraumatic Ears: hearing grossly normal bilaterally and external ears normal Eyes General: appearance normal, both eyes and all related structures Eyelids: Yes eyelids normal Sclerae: sclerae normal EOM: EOMs intact bilaterally Neck Neck: Yes normal visual inspection and Yes no lymphadenopathy Lymphatic: no lymphadenopathy noted Chest Chest palpation & inspection: normal inspection of the chest Resp Effort & Inspection: normal respiratory effort, able to speak in complete sentences, no audible wheezes, no cough, no stridor, not tachypneic, no tripod positioning and no use of accessory muscles Auscultation: clear to auscultation bilaterally Cardio Jugular venous distension: no JVD Rate: regular rate Rhythm: regular rhythm Skin Other: warm, dry General skin exam: no rashes or lesions noted Neuro General: patient oriented x3 Cranial nerves: Yes Normal hearing present Cognition (Neuro): normal cognition Gait exam (Neuro): Normal gait present Extrem General: Yes normal to inspection, Yes capillary refill normal, Yes no clubbing, cyanosis or edema and Yes no pedal edema Psych Appearance: grossly normal and well kempt Speech and movement: Normal speech and movement present and Clear speech present Affect: normal affect Attitude: cooperative Thought process: Normal thought process present Thought content: Normal thought content present Insight: Good insight present (Psych) Judgement: Good judgement present (Psych) Assessment & Plan Assessment & Plan (1) Reactive airway disease: Code(s): J45.909 - Unspecified asthma, uncomplicated Category: Medical (2) Chronic cough: Code(s): R05.3 - Chronic cough Category: Medical Plan Reviewed PFT which revealed normal spirometry with bronchodilator response in small to medium airways only. Lung volumes and DLCO was normal. At this time patient reports complete resolution of cough denies any other respiratory symptoms. She is aware to call the office if symptoms recur. All questions were answered and patient is in agreement of plan. Will follow-up as needed. Coding Level of Care Code Est Pt Level 3 (72221) Diagnoses Reactive airway disease J45.909 Chronic cough R05.3
== END 2024-05-25 16:30 | disposition home or self-care (01) ==
PROVIDERS: PCP Internal Medicine; Visit Provider Nurse Practitioner Family
DX: J45.909 Unspecified asthma, uncomplicated (principal); R05.3 Chronic cough
CPT/HCPCS: 99213

== ENCOUNTER → 2024-05-25 15:56 | Outpatient (BNVA) | payer BC, SELFPAY | PROVIDERS: PCP Internal Medicine; Visit Provider Nurse Practitioner Family ==

== ENCOUNTER 2024-06-19 10:44 | Outpatient (AMB) | payer BC, SELFPAY ==
--- NOTE | 2024-06-19 10:54 | MHC.OFFVIS ---
Intake Visit Reasons: Urodynamics/US Intake Note: Patient is present for URODYNAMICS Urology Medication:NONE Antibiotic Allergy:NONE Blood Thinner:NONE [employer] Officer Required: No Allergies No Known Allergies [No Known Allergies*] Allergy (Verified 07/27/24 16:16) HPI Comments Details: 06/19/24--Delfino is here for urodynamics. The patient has complaints of urinary incontinence. Interpretation: Complex uroflow was not obtained, due to minimal voided volume. During the filling phase there was normal sensation, the patient felt that she was at capacity at 339 mL and voided 340 mL. Leakage was observed during cough or valsalva stress, minimal LLP 66 cm H20. Findings consistent with ISD, Instrinsic sphincter deficiency. EMG- Appropriate changes in the waveforms were noted through out the study. There was a decrease in the EMG activity during the voiding c/w normal function of the pelvic floor. I have discussed treatment options to include behaviorial modification, pelvic floor PT, sling and urethral bulking therapies, the risks of bulking urethral injection to include but not limited to urine retention requiring a echevarria catheter, need to repeat the procedure, hematuria, and urgency. Review of chart: 05/19/24--Delfino is a very pleasant 39-year-old female patient of Dr. Farr. She has a past medical history of ADD and diabetes. She presents to the office today as a new patient for stress incontinence. In discussion with the patient today she reports symptoms have been present since her early 30s. She reports feeling stress incontinence presented 6-8 years ago. She does report having had 1 vaginal and labor was quick. She reports initially when she discussed this issue with her PCP 6-8 years ago she tried a medication however does not recall the name. She reports having had no benefit and therefore stopped taking the medication. She reports having followed up with her PCP for annual physical and has recently been diagnosed with diabetes and has started metformin and is trying to manage with diet control. She otherwise denies urinary urgency, urinary frequency, nocturia, hematuria, dysuria, foul smelling urine, changes to urinary stream, flank pain, fever, and or chills. In office urinalysis results reviewed with the patient today. We discussed at length potential causes of stress incontinence as well as further treatment options. Risks and benefits of these treatment options were discussed. Discussed obtaining retroperitoneal ultrasound for further assessment evaluation. She otherwise offers no other issues or concerns at this time. [facility] Surgical History History of wisdom tooth extraction H/O LEEP Family History Mother Arthritis Father Mental health disorder Essential hypertension Diabetes mellitus Stroke Social History Housing: House Alcohol intake: current Alcohol intake frequency: a few times a month Alcohol type: beer, wine and hard liquor Patient Tobacco Use Status: Never used Tobacco e-Cigarette/Vaping Use: Never Used Second Hand Smoke Exposure: No service: No Current occupational status: employed Current occupational exposures/hazards: No Cognitive needs: No Hearing needs: No Vision needs: No Office Procedures Urodynamic Studies Consent Discussed risk and benefit or proposed procedure with the patient. Information consent for procedure given to the patient. Discussed technical aspects, risks, benefits and alternatives in full. Addressed all of the patient's questions and concerns regarding the procedure. The patient demonstrated knowledge and understanding. They wish to proceed with this procedure. Preparation The patient was prepped in the usual manner. A contract coordinator was present and in the room. Genitalia was prepped with betadine solution in a sterile manner. Procedure Cystometrogram Vaginal/rectal catheter type: vaginal First sensation at (mL): 36 mL First desire at (mL): 96 mL Strong desire to void occured at (mL): 145 mL Strong desire detrussor pressure (cm H2O): 1.5 Maximum fill (mL): 339 mL Voided with max detrussor pressure of (cm H2O): 2.9 Maximum flow rate (mL/second): 15 mL/s Prep: The patient was prepped in the usual manner. A contract coordinator was present and in the room. Genitalia was prepped with betadine solution in a sterile manner. 11002-Jiaical-Sqzzkdwfopdp First 58662-Fgmh/Urinary Muscle Study 56852-Hgfct-Yugwlbahm Pressure Test Procedure code (CPT) selection complete Office Meds nitrofurantoin monohydrate/macrocrystals 100 mg capsule Performing Provider: Maximiliano Tobin MD Performing Location: [facility] Administered by: Stefan Snow LPN on 06/19/24 11:47 Dose Route Admin Location Dispensed Lot Number Expiration Date NDC Milk Condenser 100 mg PO 1 cap Assessment & Plan Assessment & Plan (1) JAXON (stress urinary incontinence, female): Code(s): N39.3 - Stress incontinence (female) (male) Category: Medical (2) Intrinsic sphincter deficiency (ISD): Code(s): N36.42 - Intrinsic sphincter deficiency (ISD) Category: Medical (3) Pelvic floor weakness: Code(s): N81.89 - Other female genital prolapse Category: Medical Plan Schedule Bulkamid. Orders: Orders AMB Urodynamics Studies 06/19/24 N39.3 - Stress incontinence (female) (male) Patient Instructions: The patient had an opportunity to ask questions regarding treatment plan. The patient expressed understanding and agreement with the above treatment plan. The patient is aware they should contact our office by phone for worsening of their current condition or the appearance of new symptoms. Compliance is encouraged with any medications and followup testing that is ordered. It is a privilege to be allowed the opportunity to participate in the urologic care of your patient. If you have any questions or concerns regarding treatment for the above conditions please do not hesitate to contact me. The office telephone contact is [phone]. This note is constructed in part using voice recognition software. While every effort has been made to ensure accuracy death claim examiner errors may have been included. Yours sincerely, Maximiliano Tobin MD Coding Level of Care Code Procedure Only Diagnoses JAXON (stress urinary incontinence, female) N39.3 Intrinsic sphincter deficiency (ISD) N36.42 Pelvic floor weakness N81.89 CPT Codes Urodynamic Studies - CPT: 40121-Ppmymds-Skbbplhbjflq First ([id number]) Urodynamic Studies - CPT: 69179-Yzur/Urinary Muscle Study ([id number]) Urodynamic Studies - CPT: 79409-Yjyte-Uwowgnurh Pressure Test ([id number])
== END 2024-06-19 12:04 | disposition home or self-care (01) ==
PROVIDERS: PCP Internal Medicine; Visit Provider Urology
DX: N39.3 Stress incontinence (female) (male) (principal)
CPT/HCPCS: 51728; 51741; 51784; 51797

== ENCOUNTER → 2024-06-19 10:44 | Outpatient (BNVA) | payer BC, SELFPAY | PROVIDERS: PCP Internal Medicine; Visit Provider Urology | DX: N39.3 Stress incontinence (female) (male) (principal); N36.42 Intrinsic sphincter deficiency (ISD); N81.89 Other female genital prolapse | CPT/HCPCS: 51728; 51741; 51784; 51797 ==

== ENCOUNTER 2024-06-23 07:44 | Outpatient (AMB) | payer BC, SELFPAY ==
--- NOTE | 2024-06-23 07:44 | A.OFFVIS_ITS ---
Intake Visit Reasons: stress incontinence(set) Intake Note: Patient presents today for follow up on: incontinence and ultrasound results Imaging Completed: 05/22/24 Urology Medication: none Antibiotic Allergy: none Blood Thinner: none Mental Health Advanced Practice Nurse Required: No Allergies No Known Allergies [No Known Allergies*] Allergy (Verified 06/23/24 10:32) Medication List - Last Reconciled 06/23/24 by NANETTE Hobson albuterol sulfate 90 mcg/actuation 2 puffs inhalation Q4-6H PRN blood sugar diagnostic (FreeStyle Lite Strips) Use 1 test strip once a day blood-glucose meter (FreeStyle Lite Meter kit) As directed hydroxyzine HCl 25 mg PO BID PRN 30 days lancets (FreeStyle Lancets) Use 1 lancet once a day levonorgestrel (Mirena) intrauterine metformin 500 mg PO BID 90 days methylphenidate HCl ER 54 mg PO QAM HPI Comments Details: Delfino is a very pleasant 39-year-old female patient of Dr. Farr. She has a past medical history of ADD and diabetes. She is being followed up on today via video telehealth for her stress incontinence. In discussion with the patient today she reports to be doing and feeling well. She reports coming to the office on Saturday and undergoing in office urodynamics with Dr. Cummings and will be moving forward with bulkamid procedure. Recent retroperitoneal ultrasound results reviewed with the patient today. Bilateral kidneys with no calculi, lesions, and or hydronephrosis. The bladder is well distended and normal. Bladder jets are demonstrated. Pre void bladder volume is proximally 250 mL. Postvoid bladder volume is proximally 20 mL. Normal retroperitoneal ultrasound. She continues to attempt managing her diabetes as she knows this is also not helpful for lower urinary tract symptoms as well as overall health and well-being. She discusses at length her longstanding history of stress incontinence over the last 6-8 years she has a history of 1 vaginal and the labor was quick. She otherwise denies urinary urgency, urinary frequency, nocturia, hematuria, dysuria, foul smelling urine, changes to urinary stream, flank pain, fever, and or chills. She otherwise offers no other issues or concerns at this time. [facility] Surgical History History of wisdom tooth extraction H/O LEEP Family History Mother Arthritis Father Mental health disorder Essential hypertension Diabetes mellitus Stroke Social History Housing: House Alcohol intake: current Alcohol intake frequency: a few times a month Alcohol type: beer, wine and hard liquor Patient Tobacco Use Status: Never used Tobacco e-Cigarette/Vaping Use: Never Used Second Hand Smoke Exposure: No service: No Current occupational status: employed Current occupational exposures/hazards: No Cognitive needs: No Hearing needs: No Vision needs: No Review of Systems Const All systems reviewed & are unremarkable except as noted in HPI and below Physical Exam Const General: cooperative Orientation/consciousness: patient oriented x3 Resp Effort & Inspection: normal respiratory effort and able to speak in complete sentences Neuro General: patient oriented x3 Psych Appearance: grossly normal and well kempt Mental Status: mental status grossly normal Speech and movement: Normal speech and movement present and Clear speech present Affect: normal affect Attitude: cooperative Thought process: Normal thought process present Thought content: Normal thought content present Insight: Fair insight present (Psych) Judgement: Fair judgement present (Psych) Telehealth Telehealth Telehealth Platform: [facility] Location of provider rendering services: practice address Location of patient: address on file Patient Identification confirmed using: Name, : Yes Telehealth method: video Patient verbally consented to treatment: Yes Patient verbally consented to billing insurance company: Yes Patient informed of any privacy concerns related to visit: Yes Minutes spent on Phone/Video with Pt.: 15 Results Reviewed Results Reviewed: Date of Service: 05/22/24 EXAMINATION: US RETROPERITONEAL COMPLETE (RENAL) FINDINGS: RIGHT KIDNEY: 12.7 x 5.5 x 4.7 cm (SAG x AP x TRV). The kidney is normal in size, contour, and echogenicity. Renal cortical thickness is normal. No calculi or focal parenchymal lesions. No hydronephrosis. LEFT KIDNEY: 12.9 x 6.8 x 4.6 cm (SAG x AP x TRV). The kidney is normal in size, contour, and echogenicity. Renal cortical thickness is normal. No calculi or focal parenchymal lesions. No hydronephrosis. BLADDER: Well distended and normal. Bilateral ureteral jets are demonstrated. Prevoid bladder volume is 248 mL. Postvoid bladder volume is 18.4 mL. IMPRESSION: Normal exam. Assessment & Plan Assessment & Plan (1) JAXON (stress urinary incontinence, female): Code(s): N39.3 - Stress incontinence (female) (male) Category: Medical Plan Recent retroperitoneal ultrasound results reviewed with the patient today; as noted above. Patient has undergone in office urodynamics and will be undergoing bulkamid with Dr. Cummings as planned. She otherwise offers no other issues or concerns at this time. Will follow-up with Dr. Cummings as planned or sooner with any issues, concerns, and or questions. Patient Instructions: The patient had an opportunity to ask questions regarding the treatment plan. All questions were answered. Physical exam, labs, and imaging were discussed and reviewed in detail. As well as risks, benefits, and discussion of treatment choices. No major barriers to understanding were identified. The patient expressed understanding and agreement with the above treatment plan. The patient was made aware they should contact our office by phone for worsening of their current condition, the appearance of new symptoms, or with any questions or concerns. Compliance is encouraged with any medications and follow up testing that is ordered. It is a privilege to be allowed the opportunity to participate in? your urological care.? Again, if you have any questions or concerns If you have any questions or concerns please do not hesitate to contact me. The office is [phone]. This note is constructed using voice recognition software. While every effort has been made to ensure accuracy bus attendant errors may have been included. Yours sincerely, NANETTE Hobson Coding Level of Care Code Tele Est Pt Level 3 (42760) Diagnoses JAXON (stress urinary incontinence, female) N39.3 Time Spent (min) 15
== END 2024-06-23 11:37 | disposition home or self-care (01) ==
LOC: HO.HUSH 07:44
PROVIDERS: PCP Internal Medicine; Visit Provider Nurse Practitioner Family
DX: N39.3 Stress incontinence (female) (male) (principal)
CPT/HCPCS: 99213

== ENCOUNTER → 2024-06-23 07:44 | Outpatient (BNVA) | payer BC, SELFPAY | PROVIDERS: PCP Internal Medicine; Visit Provider Nurse Practitioner Family ==

== ENCOUNTER 2024-07-27 15:11 | Outpatient (AMB) | payer BC, SELFPAY ==
--- NOTE | 2024-07-27 15:22 | MHC.PC.OV ---
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 Accompanied by: Self / Same As Patient Allergies No Known Allergies [No Known Allergies*] Allergy (Verified 07/27/24 16:16) Medication List - Last Reconciled 07/27/24 by Maci Davidson MD albuterol sulfate 90 mcg/actuation 2 puffs inhalation Q4-6H PRN blood sugar diagnostic (FreeStyle Lite Strips) Use 1 test strip once a day blood-glucose meter (FreeStyle Lite Meter kit) As directed hydroxyzine HCl 25 mg PO BID PRN 30 days lancets (FreeStyle Lancets) Use 1 lancet once a day levonorgestrel (Mirena) intrauterine metformin 500 mg PO BID 90 days methylphenidate HCl ER 54 mg PO QAM Tobacco use date assessed: 02/26/24 Dental Screening Dental Screen Date: 07/27/24 Did you have a dental visit in the last 12 months?: Yes Did you have a dental problem in the last 6 months where you did not have access to dental care?: No Was dental information given to patient?: Patient has dentist HPI HPI Comments History of Present Illness Details The patient is a 39-year-old female presenting with a primary focus on diabetes management and recent concerns regarding elevated blood pressure. The patient has a history of Type 2 Diabetes Mellitus and was previously managed with Metformin, 500 mg twice daily. Despite good control of her glycemic levels, as indicated by an A1c of 5.8 from recent lab results, she reports significant gastrointestinal side effects, including persistent stomach pain and diarrhea, attributed to Metformin. The patient notes a weight loss of 28 pounds, largely credited to significant dietary modifications, namely the reduction of sugar and carbohydrates, rather than medication. The patient also presents with elevated blood pressure, noted at 150/100 during the visit. She expresses uncertainty as this elevation is inconsistent with previous readings at other healthcare visits where blood pressure was reportedly normal. Routine follow-up and management for this hypertensive reading are discussed. The patient has an established diagnosis of anxiety, managed with hydroxyzine as needed. [facility] Surgical History History of wisdom tooth extraction H/O LEEP Family History Mother Arthritis Father Mental health disorder Essential hypertension Diabetes mellitus Stroke Social History Housing: House Alcohol intake: current Alcohol intake frequency: a few times a month Alcohol type: beer, wine and hard liquor Patient Tobacco Use Status: Never used Tobacco e-Cigarette/Vaping Use: Never Used Second Hand Smoke Exposure: No service: No Current occupational status: employed Current occupational exposures/hazards: No Cognitive needs: No Hearing needs: No Vision needs: No Questionnaire PHQ-9 Over the last 2 weeks, how often have you been bothered by any of the following problems? 1. Little interest or pleasure in doing things: not at all 2. Feeling down, depressed, or hopeless: not at all 3. Trouble falling or staying asleep, or sleeping too much: not at all 4. Feeling tired or having little energy: not at all 5. Poor appetite or overeating: not at all 6. Feeling bad about yourself - or that you are a failure or have let yourself or your family down: not at all 7. Trouble concentrating on things, such as reading the newspaper or watching television: not at all 8. Moving or speaking so slowly that other people could have noticed. Or the opposite - being so fidgety or restless that you have been moving around a lot more than usual: not at all 9. Thoughts that you would be better off or of hurting yourself in some way: not at all Total score: 0 Depression Screening Interpretation: Negative Depression Screening Done: Yes 85268 - PHQ-9 Billing: Yes Source: Developed by Drs. Mick Miller, Quin Douglas, Negro Viera and colleagues, with an educational theresa from [employer]. Thrive Questionnaire Date Thrive assessed: 07/27/24 I am a: Patient What is your living situation today?: I have a steady place to live Within the past 12 months, did the food you bought not last and you didn't have the money to get more?: Never true Within the past 12 months, did you worry whether your food would run out before you got money to buy more?: Never true Do you have trouble paying for medicines?: No Do you have trouble getting transportation to medical appointments?: No Do you have trouble paying your heating and electricity bill?: No Do you have trouble taking care of your child, family member or friend?: No Do you have trouble with day-to-day activities such as bathing, preparing meals, shopping, managing finances, etc.?: No Are you currently unemployed and looking for a job?: No Are you interested in more education?: No Please select the resources that you would like help with: None Currently or been in a relationship where the following occur: No concerns reported THRIVE Score: 0 AUDIT C Alcohol Use Questionnaire (AUDIT-C) 1. How often do you have a drink containing alcohol?: Monthly or less 2. How many drinks containing alcohol do you have on a typical day when you are drinking?: 1 or 2 3. How often do you have six or more drinks on one occasion?: Never Total Score: 1 Score Reviewed/Action Taken: No ZAC-7 AMB Questionnaire ZAC-7 Date ZAC - 7 assessed: 07/27/24 Feeling nervous, anxious, or on edge: 0 = Not at all Not being able to stop or control worryin = Not at all Worrying too much about different things: 0 = Not at all Trouble relaxin = Not at all Being so restless that it is hard to sit still: 0 = Not at all Becoming easily annoyed or irritable: 0 = Not at all Feeling afraid as if something awful might happen: 0 = Not at all Total ZAC-7 score (0-4 normal; 5-9 mild; 10-14 moderate; 15-21 severe): 0 Source: Developed by Drs. Mick Miller, Quin Douglas, Negro Viera and colleagues, with an educational theresa from [employer]. ZAC-7 Assessment Billing ZAC-7 Assessment Tool: ZAC-7 Assessment 29958 Review of Systems Const Details: - Gastrointestinal: Reports stomach pain and diarrhea with Metformin use. Physical exam (Primary Care) Vital Signs: Last Vital Signs BP 150/100 H 07/27/24 15:27 BMI result Body Mass Index 30.4 BMI Assessment/Plan discussion: High BMI High, discussed plan: lifestyle, weight reduction, dietary and physical activity Tobacco/Smoking Status: Tobacco use Status Tobacco use date assessed 02/26/24 07/27/24 15:23 Patient Tobacco Use Status Never used Tobacco 07/27/24 15:23 Tobacco use type 05/19/24 08:46 e-Cigarette/Vaping Use Never Used 07/27/24 15:23 PHQ-9: PHQ-9 Score PHQ-9: Total score 0 07/27/24 16:19 Depression Screening Interpretation: Negative Thrive Assessment: Date of Thrive Assessment Date Thrive assessed 07/27/24 07/27/24 15:35 Currently or been in a relationship where the following occur: No concerns reported Const Other: General: No confusion Respiratory: Normal respiratory effort, clear to auscultation bilaterally Cardiovascular: No jugular venous distension, regular rate, regular rhythm, S1 normal heart sound present and S2 normal heart sound present Office Procedures Flu Questionnaire Does the patient have a severe egg allergy?: No Results AMB Hemoglobin A1c AMB Hemoglobin A1c 5.8 % Last Edit by ROXANNA Zamudio on 07/27/24 15:34 Immunizations Fluarix Triv [id number] (PF) 45 mcg (15 mcg x 3)/0.5 mL IM syringe Performing Provider: Maci Davisdon MD [facility] Documented (not given) by: ROXANNA Zamudio on 07/27/24 15:33 Reason Not Given: Patient Refused Results Reviewed Results Reviewed: Laboratory Last Values Hgb A1c (Clinic) 5.8 % (4.0-6.0) 07/27/24 15:32 Coding Level of Care Code Est Pt Level 4 (13328) Complex EM visit Add On G2211 Diagnoses Type 2 diabetes mellitus without complication, without long-term current use of insulin E11.9 Diabetes mellitus type: type 2 Diabetes mellitus [facility] insulin use: without [facility] use Diabetes mellitus complication status: without complication Elevated blood pressure reading without diagnosis of hypertension R03.0 Anxiety F41.9 Obesity (BMI 30-39.9) E66.9 Additional Codes ZAC-7 Assessment Billing - ZAC-7 Assessment Tool: ZAC-7 Assessment 97577 ([id number]) PHQ-9 - 87266 - PHQ-9 Billing: Yes ([id number]) Time Spent (min) 23 Assessment & Plan Assessment & Plan (1) Diabetes mellitus: Code(s): E11.9 - Type 2 diabetes mellitus without complications Category: Medical Qualifiers: Diabetes mellitus type: type 2 Diabetes mellitus [facility] insulin use: without [facility] use Diabetes mellitus complication status: without complication Qualified Code(s): E11.9 - Type 2 diabetes mellitus without complications (2) Elevated blood pressure reading without diagnosis of hypertension: Code(s): R03.0 - Elevated blood-pressure reading, without diagnosis of hypertension Category: Medical (3) Anxiety: Code(s): F41.9 - Anxiety disorder, unspecified Category: Medical (4) Obesity (BMI 30-39.9): Code(s): E66.9 - Obesity, unspecified Category: Medical Plan - Discuss possible switch from Metformin to Pioglitazone, 15 mg once daily, to alleviate gastrointestinal side effects. - Consider re-evaluating blood pressure in three weeks; if persistently elevated, initiate antihypertensive therapy such as an ARTURO inhibitor. - Educate on alternative sites for glucose monitoring due to frequent typing needs. - Advise continuation of current anxiety management medication, hydroxyzine. - Review pre-operative medication use with respect to upcoming bladder surgery. - Encourage continued dietary modification for diabetes and weight management. Patient was informed and verbally consented to the use of an ambient scribe for clinic note documentation during this visit. The patient was advised of the excellent control of diabetes as evidenced by the A1c of 5.8, and she was congratulated on her significant weight loss attributed to lifestyle changes. We discussed the known gastrointestinal side effects of Metformin and the plan to transition to an alternative medication, Pioglitazone, due to the reported side effects. We deliberated on blood pressure management, with the plan to recheck in three weeks and consider medication if necessary. I responded to the patient's inquiry regarding glucose monitoring methods and clarified options, including costs and insurance coverage issues. Regarding the upcoming surgery, I instructed on the safety of continuing medications the morning of the procedure with minimal water. Follow-up plans for blood pressure and diabetes management were outlined. Orders: Orders Influenza [id number] Immunization Today Z23 - Encounter for immunization AMB Hemoglobin A1c Today E11.9 - Type 2 diabetes mellitus without complications Medications: New pioglitazone 15 mg PO DAILY 90 tabs 1RF 90 days E11.9 - Type 2 diabetes mellitus without complications Patient Instructions: - Change from Metformin to Pioglitazone, 15 mg once daily. - Measure blood pressure in three weeks; seek follow-up if still elevated. - Consider alternative glucose monitoring sites, such as earlobes. - Continue current anxiety medication as needed. - Take prescribed medication morning of surgery with little water. - Maintain current diet and weight loss efforts.
[2024-07-27 15:27] VITALS: BP 150/100; BMI 30.4
== END 2024-07-27 16:34 | disposition home or self-care (01) ==
PROVIDERS: PCP Internal Medicine; Visit Provider Internal Medicine
DX: E11.9 Type 2 diabetes mellitus without complications (principal); R03.0 Elevated blood-pressure reading, without diagnosis of hypertension; Z68.30 Body mass index [BMI] 30.0-30.9, adult; E66.811 Obesity, class 1; F41.9 Anxiety disorder, unspecified; Z23 Encounter for immunization

== ENCOUNTER → 2024-07-27 15:11 | Outpatient (BNVA) | payer BC, SELFPAY | PROVIDERS: PCP Internal Medicine; Visit Provider Internal Medicine | DX: E11.9 Type 2 diabetes mellitus without complications (principal); R03.0 Elevated blood-pressure reading, without diagnosis of hypertension; F41.9 Anxiety disorder, unspecified; E66.9 Obesity, unspecified; Z68.30 Body mass index [BMI] 30.0-30.9, adult; Z79.84 Long term (current) use of oral hypoglycemic drugs; Z28.21 Immunization not carried out because of patient refusal | CPT/HCPCS: 83036; 96127 ==

== ENCOUNTER 2024-08-25 10:56 | Day surgery (SDC) | payer BC, SELFPAY ==
[2024-08-21 14:11] VITALS: BMI 30.4
--- NOTE | 2024-08-24 11:54 | P.CONAN_ITS ---
Documented by User: Aneta Arroyo NP 08/24/24 11:55 HPI - Anesthesia Eval Consult details Narrative: 39yo F for Cystoscopy with Bulkamid PMFSH Active Problems Active Problems: All Active Problems Pelvic floor weakness (Acute) Intrinsic sphincter deficiency (ISD) (Acute) Obesity (BMI 30-39.9) (Acute) Anxiety (Acute) Elevated blood pressure reading without diagnosis of hypertension (Acute) Reactive airway disease (Acute) Environmental allergies (Acute) JAXON (stress urinary incontinence, female) (Acute) Class 1 obesity with body mass index (BMI) of 34.0 to 34.9 in adult (Acute) Chronic cough (Acute) Diabetes mellitus (Acute) URI (upper respiratory infection) (Acute) Screening for cervical cancer (Acute) Foot callus (Acute) Onychomycosis (Acute) Physical exam (Acute) General weakness (Acute) Past Medical History Medical History ADD (attention deficit disorder) Urge urinary incontinence Anxiety Reactive airway disease Diabetes mellitus Family History Family History Mother Arthritis Father Mental health disorder Essential hypertension Diabetes mellitus Stroke Surgical History Surgical History History of wisdom tooth extraction H/O LEEP Social History Social History Housing: House Alcohol intake: current Alcohol intake frequency: a few times a month Alcohol type: beer, wine and hard liquor Patient Tobacco Use Status: Never used Tobacco e-Cigarette/Vaping Use: Never Used Second Hand Smoke Exposure: No Use of substances other than those prescribed or required for medical reasons: No Are you DNR?: No Advance Directives: No Advance Directives Information Provided: Yes service: No Current occupational status: employed Current occupational exposures/hazards: No Cognitive needs: No Hearing needs: No Vision needs: No Meds Allergies Allergy/AdvReac Type Severity Reaction Status Date / Time No Known Allergies Allergy Verified 08/25/24 11:43 [No Known Allergies*] Home Medications ?Medication ?Instructions ?Recorded ?Confirmed ?Last Taken ?Type levonorgestrel 21 mcg/24 hr (up to intrauterine 02/15/22 07/27/24 Unknown History 8 years) 52 mg intrauterine device (Mirena) methylphenidate HCl 54 mg 54 mg PO QAM 06/23/24 07/27/24 Unknown History tablet,extended release 24 hr albuterol sulfate 90 mcg/actuation 2 puff inhalation Q4-6H PRN 08/25/24 Unknown History aerosol inhaler (Ventolin HFA) shortness of breath or wheezing pioglitazone 15 mg tablet (Actos) 15 mg PO DAILY 08/25/24 Unknown History Exam Height,Weight and Vital Signs: Height 5 ft 9 in Weight 93.44 kg Assessment and Plan Assessment Anesthesia Assessment: Chart Reviewed Documented by User: Bere Clayton MD 08/25/24 11:49 [facility] Active Problems Active Problems: All Active Problems Pelvic floor weakness (Acute) Intrinsic sphincter deficiency (ISD) (Acute) Obesity (BMI 30-39.9) (Acute) Anxiety (Acute) Elevated blood pressure reading without diagnosis of hypertension (Acute) Reactive airway disease (Acute) Environmental allergies (Acute) JAXON (stress urinary incontinence, female) (Acute) Class 1 obesity with body mass index (BMI) of 34.0 to 34.9 in adult (Acute) Chronic cough (Acute) Diabetes mellitus (Acute) URI (upper respiratory infection) (Acute) Screening for cervical cancer (Acute) Foot callus (Acute) Onychomycosis (Acute) Physical exam (Acute) General weakness (Acute) ? Diagnosed as 100 day cough. February to May last year. Now resolved Past Medical History Medical History ADD (attention deficit disorder) Urge urinary incontinence Anxiety Reactive airway disease Diabetes mellitus Family History Family History Mother Arthritis Father Mental health disorder Essential hypertension Diabetes mellitus Stroke Family history of problems with anesthesia: No Surgical History Surgical History History of wisdom tooth extraction H/O LEEP History of Problems with Anesthesia: No Social History Social History Housing: House Alcohol intake: current Alcohol intake frequency: a few times a month Alcohol type: beer, wine and hard liquor Patient Tobacco Use Status: Never used Tobacco e-Cigarette/Vaping Use: Never Used Second Hand Smoke Exposure: No Use of substances other than those prescribed or required for medical reasons: No Are you DNR?: No Advance Directives: No Advance Directives Information Provided: Yes service: No Current occupational status: employed Current occupational exposures/hazards: No Cognitive needs: No Hearing needs: No Vision needs: No Meds Allergies Allergy/AdvReac Type Severity Reaction Status Date / Time No Known Allergies Allergy Verified 08/25/24 11:43 [No Known Allergies*] Home Medications ?Medication ?Instructions ?Recorded ?Confirmed ?Last Taken ?Type levonorgestrel 21 mcg/24 hr (up to intrauterine 02/15/22 07/27/24 Unknown History 8 years) 52 mg intrauterine device (Mirena) methylphenidate HCl 54 mg 54 mg PO QAM 06/23/24 07/27/24 Unknown History tablet,extended release 24 hr albuterol sulfate 90 mcg/actuation 2 puff inhalation Q4-6H PRN 08/25/24 Unknown History aerosol inhaler (Ventolin HFA) shortness of breath or wheezing pioglitazone 15 mg tablet (Actos) 15 mg PO DAILY 08/25/24 Unknown History Exam Height,Weight and Vital Signs: Height 5 ft 9 in Weight 93.44 kg Vital Signs Temp Pulse Resp BP Pulse Ox O2 Del Method 08/25/24 11:32 98.7 F 95 15 117/80 97 Room Air Pertinent Lab Results Pertinent Lab Results: Lab Results 08/25/24 08/25/24 Range/Units 11:10 11:30 POC Glucose 113 (60-115) mg/dL Urine Test NEGATIVE (NEGATIVE) Airway Mallampati Class: II TM Dist: >3cm Neck ROM: Full Loose/Missing/Broken Teeth: Yes ([place] teeth extracted. Denies broken or loose teeth) Heart: RRR Lungs: CTAB Assessment and Plan Assessment Anesthesia Assessment: Anesthesia Plan Discussed and Chart Reviewed Final Anesthetic Review Family History of Problems with Anesthesia: No History of Problems with Anesthesia: No NPO: Yes ASA Class: II Final Preanesthetic Review: No Changes in Pt Med Stat, Meds/Allgs Chart Reviewed, Consent Obtained/Reviewed and Anes Risks/Benef Reviewed Patient Risk: Intermediate Procedure Risk: Low Assessment/Block/Sedation in SS: Assess/Block/Sedation-SS Anesthetic Plan Anesthetic Plan: GA Disposition: Standard PACU
[2024-08-25] VITALS (9 sets, daily range): BP systolic 117–139; BP diastolic 73–100; PULSE 64–95; RESP 15–21; TEMP 36.1–37.1; O2SAT 97–100; BMI 29.2
[2024-08-25 11:30] LABS: UPreg QC Valid YES; Urine Pregnancy NEGATIVE (NEGATIVE)
[2024-08-25 11:39] LABS: Glucose, Whole Blood 113 mg/dL (60-115)
[2024-08-25] MEDS: Lactated Ringers 1,000 ML 100 ML IVCONT (11:42)
--- NOTE | 2024-08-25 12:06 | MHC.SHP ---
Pre-Procedural Eval Section A - 24 Hr Update-Section A only Date of Service: 08/25/24 The patient is an INPATIENT: No The patient has been examined within 24 hours of the surgical procedure. The History & Physical has been completed within 30 days and I have reviewed it.: Yes Section B - Complete if H&P > 30 days Chief Complaint: Stress incontinence (female) (male) Allergies: Allergies Allergy/AdvReac Type Severity Reaction Status Date / Time No Known Allergies Allergy Verified 08/25/24 11:43 [No Known Allergies*] Plan Diagnosis/Plan: Unchanged I have reviewed the history and physical and performed a pertinent physical examination on my patient. No changes have occurred unless specified. Cystoscopy. Bulkamid, urethral bulking. Time Spent With Patient Time: Total time managing care of this patient today ____ minutes.
--- NOTE | 2024-08-25 15:53 | W.PM.OPN ---
Operative Note Operative Note Date of Service: 08/25/24 Narrative: Preop diagnosis: Intrinsic sphincter deficiency Postop diagnosis: Intrinsic sphincter deficiency Procedure: Cystoscopy urethral bulking with bulkamid system at the proximal urethra Surgeon: Dr. Maximiliano Tobin Details of procedure: The patient was brought into the operating room placed on the OR table in supine position IV sedation was administered. Antibiotics confirmed. The patient was placed in lithotomy position prepped and draped in the usual sterile fashion. Safety time-out was done. A 14 Maltese straight catheter was used to send urine for culture. 2% lidocaine jelly was inserted transurethrally 10 mL. Using the 0 degree 11 cm cystoscope with the light cord in the 6 o'clock position, the bladder was filled with sterile water to 150 mL the bladder was visualized. With the sheath at the 5 o'clock position the needle was inserted to the 1 cm julio and 0.5 mL of gel was injected there was good bulking noted. This was repeated on the 7 o'clock position. The 2nd needle was inserted into the sheath and an injection was done at the 2 o'clock position and again at the 11 o'clock position. A 3rd needle used at the 2 oclock and 11 oclock position. There was bulking of the mucosa noted with good coaptation. The patient tolerated the procedure and was taken to recovery in stable condition. Complication: none Drains: none
[2024-08-25] MEDS: fentaNYL citrate/PF 100 MCG/2 ML VIAL 25 MCG IVPUSH (16:00)
[2024-08-25] MEDS: Acetaminophen 325 MG TABLET 650 MG PO (16:27)
[2024-08-25] MEDS: oxyCODONE HCl Immed Release 5 MG TABLET PO (16:28)
== END 2024-08-25 16:33 | disposition home or self-care (01) ==
PROVIDERS: Nurse Practitioner; PCP Internal Medicine; Visit Provider Urology
PROC: (CPT 51715; principal; 2024-08-25 12:40)
DX: N39.3 Stress incontinence (female) (male) (principal); N39.41 Urge incontinence; E11.9 Type 2 diabetes mellitus without complications; F98.8 Other specified behavioral and emotional disorders with onset usually occurring in childhood and adolescence; J45.909 Unspecified asthma, uncomplicated; F41.9 Anxiety disorder, unspecified; Z79.899 Other long term (current) drug therapy; Z97.5 Presence of (intrauterine) contraceptive device; Z98.890 Other specified postprocedural states
CPT/HCPCS: 51715; 81025; 82947; 87086; J0690; J2003; J2405; J2704; J3010; L8606

== ENCOUNTER → 2024-08-25 10:56 | Outpatient (BNV) | payer BC, SELFPAY | PROVIDERS: PCP Internal Medicine; Visit Provider Urology | DX: N36.42 Intrinsic sphincter deficiency (ISD) (principal) | CPT/HCPCS: 51715 ==

== ENCOUNTER → 2024-08-31 12:59 | Outpatient (BNVA) | payer BC, SELFPAY | PROVIDERS: PCP Internal Medicine; Visit Provider Urology | DX: N39.3 Stress incontinence (female) (male) (principal) | CPT/HCPCS: 51798 ==

== ENCOUNTER 2024-09-07 08:03 | Outpatient (REF) | payer BC, SELFPAY ==
[2024-09-07 09:26] LABS: Creatinine Urine 254.57 mg/dL; Microalbum/Creatinine Ratio Ur 9.8 ug/mg cr (<30)
[2024-09-07 09:32] LABS: Alanine Aminotransferase 29 U/L (0-31); Albumin Level 4.1 g/dL (3.5-5.0); Alkaline Phosphatase 45 U/L (39-117); Anion Gap 10 (12-20); Aspartate Amino Transferase 20 U/L (5-31); Bilirubin Total 0.5 mg/dL (0.0-1.0); Blood Urea Nitrogen 17 mg/dL (9-16); Calcium 8.6 mg/dL (8.4-10.2); Carbon Dioxide 23 mmol/L (22-29); Chloride 109 mmol/L (96-108); Cholesterol 121 mg/dL (<200); Estimated Glomerular Filt Rate > 60; Glucose Fasting 100 mg/dL (60-99); HDL Cholesterol 29 mg/dL (>40); LDL Cholesterol Calculated 80 mg/dL (<100); Potassium 3.9 mmol/L (3.3-5.1); Sodium 138 mmol/L (135-145); Total Protein 7.3 g/dL (6.5-8.0); Triglycerides 64 mg/dL (<150)
[2024-09-08 21:53] LABS: Immunoglobulin E 18 kU/L (<OR=114)
[2024-09-13 20:48] LABS: Glutamic acid decarboxylase Ab <5 IU/mL (<5)
[2024-09-15 00:59] LABS: Insulin Auto Antibody <0.4 U/mL (<0.4)
== END 2024-09-07 08:04 | disposition home or self-care (01) ==
LOC: HO.LAB 08:03
PROVIDERS: Nurse Practitioner Family; PCP Internal Medicine; Visit Provider Internal Medicine
DX: E11.9 Type 2 diabetes mellitus without complications (principal); E78.5 Hyperlipidemia, unspecified; Z91.09 Other allergy status, other than to drugs and biological substances
CPT/HCPCS: 36415; 80053; 80061; 82043; 82570; 82785; 86337; 86341

== ENCOUNTER → 2024-09-08 07:56 | Outpatient (BNVA) | payer BC, SELFPAY | PROVIDERS: PCP Internal Medicine; Visit Provider Nurse Practitioner Adult Health | DX: E11.9 Type 2 diabetes mellitus without complications (principal); Z79.84 Long term (current) use of oral hypoglycemic drugs | CPT/HCPCS: 82947 ==

== ENCOUNTER → 2024-09-15 07:02 | Outpatient (BNVA) | payer BC, SELFPAY | PROVIDERS: PCP Internal Medicine; Visit Provider Registered Nurse Diabetes Educator | DX: E11.9 Type 2 diabetes mellitus without complications (principal) | CPT/HCPCS: 99211 ==

== ENCOUNTER → 2024-09-15 08:02 | Outpatient (AMB) | payer BC, SELFPAY ==
--- NOTE | 2024-09-15 07:59 | MHC.AMDMED ---
Intake Intake Visit Reasons: T2DM Photoengraving Proofer Required: No Accompanied by: Self / Same As Patient Allergies No Known Allergies [No Known Allergies*] Allergy (Verified 09/08/24 08:04) HPI Comprehensive Diabetes Asmnt Most Recent Diabetes Results: Microalb/Creat Ratio 9.8 ug/mg cr (<30) 09/07/24 Cholesterol 121 mg/dL (<200) 09/07/24 HDL Cholesterol 29 mg/dL (>40) L 09/07/24 Triglycerides 64 mg/dL (<150) 09/07/24 Creatinine 0.66 mg/dL (0.5-1.4) 09/07/24 Blood Urea Nitrogen 17 mg/dL (9-16) H 09/07/24 Sodium 138 mmol/L (135-145) 09/07/24 Potassium 3.9 mmol/L (3.3-5.1) 09/07/24 Chloride 109 mmol/L (96-108) H 09/07/24 Carbon Dioxide 23 mmol/L (22-29) 09/07/24 Calcium 8.6 mg/dL (8.4-10.2) 09/07/24 AST 20 U/L (5-31) 09/07/24 ALT 29 U/L (0-31) 09/07/24 Total Protein 7.3 g/dL (6.5-8.0) 09/07/24 Albumin 4.1 g/dL (3.5-5.0) 09/07/24 [facility] Medical History Diabetes mellitus ADD (attention deficit disorder) Urge urinary incontinence Anxiety Reactive airway disease Surgical History History of wisdom tooth extraction H/O LEEP Family History Mother Arthritis Father Mental health disorder Essential hypertension Diabetes mellitus Stroke Social History Housing: House Alcohol intake: current Alcohol intake frequency: a few times a month Alcohol type: beer, wine and hard liquor Comment: medicated Patient Tobacco Use Status: Never used Tobacco e-Cigarette/Vaping Use: Never Used Second Hand Smoke Exposure: No service: No Current occupational status: employed Current occupational exposures/hazards: No Cognitive needs: No Hearing needs: No Vision needs: No Assessment & Plan Assessment & Plan (1) Diabetes mellitus: Code(s): E11.9 - Type 2 diabetes mellitus without complications Qualifiers: Diabetes mellitus type: type 2 Diabetes mellitus ferry terminal supervisor insulin use: without ferry terminal supervisor use Diabetes mellitus complication status: without complication Qualified Code(s): E11.9 - Type 2 diabetes mellitus without complications Plan: Diabetes self-management education and support participation record Assessment/scale: 1= needs instructed? 2= needs review? 3= comprehend keep point? 4= demonstrates understanding/ competent? NC= Not Covered Topics Learning Objective: Initial visit Initial or post srvc Initial or post srvc Initial or post srvc Initial or post srvc Initial or post srvc Post srvc Comments Pre Edu-assessment/plan Outcome or reassess Outcome or reassess Outcome or reassess Outcome or reassess Outcome or reassess Outcome or reassess Diabetes pathophysiology 1 Healthy eating 2 Being active 1 Taking medication n/a not on DM meds at this time Monitoring glucose 1 Acute complication 1 Chronic complicated 1 Lifestyle and healthy coping 1 Diabetes distress in support 1 ?Diabetes pathophysiology: ?Defined diabetes med identify own type of diabetes; list 3 options for treating diabetes Healthy eating: ?Described effect of type, amount and ?timing of food on blood glucose; list 3 methods for planning meal Being active: ?State effect of exercise on blood glucose level Taking medication: ?State effect of diabetes medications on diabetes; name diabetes medications taking, action and side effects Monitoring glucose: ?Identify recommended blood glucose targets and personal target Acute complication: ?List symptoms and treatment of hyper and hypoglycemia, DKA, sick day guidelines and guidelines for severe weather or situations of crisis and diabetes supply manage Chronic complication: ?To find the relationship of blood glucose levels to long-term complications of diabetes in screening and preventative measures Lifestyle and healthy coping: ?Described lifestyle and healthy coping strategies to rule out diabetes self-management Diabetes to stress and support: ?Recognize Diabetes to stress and be able to identified support options Learning objectives: The patient was provided with verbal and written education on the following topics as outlined below. The patient met all learning objectives and was able to verbalize understanding and provide teach back of education topics discussed . The patient was provided with the opportunity to ask questions and all questions were answered. 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 Reports she does not participate in physical activity at this time Patient diagnosed in 03/24/2024 with A1c of 8%, last A1c in 07/24/2024 5.8% Patient is currently controlling glucose with lifestyle modification Was originally on metformin, could not tolerate Change to Actos was experiencing hypoglycemia What is Diabetes? Pathophysiology How the body produces and uses insulin Identify type of DM Risk factors Signs of Diabetes Brief overview of Diabetes Management Monitoring blood sugar Following a meal plan Regular exercise Maintaining a healthy weight Taking medication as needed Members of the care team (PCP, RN, MA, RD, CDE, metal spraying machine operator) Blood glucose monitoring When/how often to test Target blood sugar ranges Sample Ally 3 Average glucose for the past 4 days 119 mg/dL Above target 2% At target 98% Below target 0% Introduction to Nutrition Importance of healthy diet in managing DM Diet is personalized to individual preference Review patient?s regular diet/food preferences Who prepares meals/does food shopping/ Dining out?/ Barriers? How diet effects glucose Eating 3 balanced meals a day with small, healthy snacks between meals Review food groups Carbohydrates: What is a carbohydrate/Which food/food groups are considered carbohydrates Effect of carbohydrates on blood glucose Portion sizes Reading food labels Basic carb counting (if applicable per nursing assessment) Plate method Meal planning Recommendations: Follow plate method, consistent carbs and read nutritional labels. Smart Goal: Patient will keep carbohydrate portion of meals between 30-45 g Educational Materials: The patient was provided with the following written educational materials: Planning Healthy Meals Handout Patient Response to instructions: Comprehension of Instructions: Good Readiness to make changes: Contemplation How confident they feel about making changes: Positive Portions of this note were created using voice recognition software, please excuse any words or phrases that may have been misinterpreted. Patient Instructions: Include regular daily activity. ADA recommends 30 minutes of exercise 5 days a week. Weight loss talk to PCP or Fine Grade Operator before starting new plan. Test blood sugar as directed; Fasting and 2hpp largest meal. Watch trends in results. Utilize results and to assess how food, physical activity and medications affect blood sugar results. Bring glucometer or CGM to next visit. Be knowledgeable about diabetes medication, its action, side effects, efficacy, toxicity, prescribed dosage, appropriate timing and frequency of administration, effect of missed and delayed doses and instructions for storage, travel and safety. Problem solving techniques to monitor hypo/hyperglycemia episodes and treatments. Reduce risk reduction behaviors, smoking cessation, regular eye, foot and dental examinations. Follow up with Quilt Maker in 2 months Coding Level of Care Code Est Pt Level 1 (78013) Diagnoses Type 2 diabetes mellitus without complication, without long-term current use of insulin E11.9 Diabetes mellitus type: type 2 Diabetes mellitus assisted insulin use: without ferry terminal supervisor use Diabetes mellitus complication status: without complication
== END | disposition home or self-care (01) ==
PROVIDERS: PCP Internal Medicine; Visit Provider Registered Nurse Diabetes Educator
DX: E11.9 Type 2 diabetes mellitus without complications (principal)

== ENCOUNTER 2024-09-17 15:25 | Outpatient (AMB) | payer BC, SELFPAY ==
--- NOTE | 2024-09-17 15:40 | MHC.OFFVIS ---
Intake Visit Reasons: Bulkamid- follow up Intake Note: Patient presents today for follow up on: incontinence and Bulkamid [facility] Medication: none Antibiotic Allergy: none Blood Thinner: none PVR: 0ml's Director Rehabilitation Program Required: No Accompanied by: Self / Same As Patient Allergies No Known Allergies [No Known Allergies*] Allergy (Verified 09/17/24 15:55) Medication List - Last Reconciled 09/17/24 by Maximiliano Tobin MD blood sugar diagnostic (FreeStyle Lite Strips) Use 1 test strip once a day blood-glucose meter (FreeStyle Lite Meter kit) As directed blood-glucose sensor (FreeStyle Ally 3 Plus Sensor device) for continous use change every 15 days hydroxyzine HCl 25 mg PO BID PRN 30 days lancets (FreeStyle Lancets) Use 1 lancet once a day levonorgestrel (Mirena) device intrauterine methylphenidate HCl ER (Concerta) 54 mg PO QAM HPI Comments Details: S/P Bulkamid 08/25/24. Yarily states she is doing well, urine flow is slower, she states she has pushed a little. Denies urine leakage. Discuss to avoid pushing while urinating. FU in 6 months PFSH Medical History Diabetes mellitus ADD (attention deficit disorder) Urge urinary incontinence Anxiety Reactive airway disease Surgical History History of wisdom tooth extraction H/O LEEP Family History Mother Arthritis Father Mental health disorder Essential hypertension Diabetes mellitus Stroke Social History Housing: House Alcohol intake: current Alcohol intake frequency: a few times a month Alcohol type: beer, wine and hard liquor Comment: medicated Patient Tobacco Use Status: Never used Tobacco e-Cigarette/Vaping Use: Never Used Second Hand Smoke Exposure: No service: No Current occupational status: employed Current occupational exposures/hazards: No Cognitive needs: No Hearing needs: No Vision needs: No Review of Systems Const All systems reviewed & are unremarkable except as noted in HPI and below Reports no additional complaints Eyes Reports no additional complaints ENT Reports no additional complaints Card Reports no additional complaints Resp Reports no additional complaints GI Reports no additional complaints Reports as per HPI Musc Reports no additional complaints Skin/Breast Reports system reviewed and no additional complaints, except as documented Neuro Reports no additional complaints Psych Reports no additional complaints Endo Reports no additional complaints Ajay/Lymph Reports no additional complaints Aller/Immun Reports no additional complaints Office Procedures Post Void Residual Post Residual Void Post Void Residual (PVR): 0 [id number] Void Residual by ultrasound Results AMB Urinalysis, Automated UA Leukoctes 0 Therese/uL Last Edit by [employer] on 09/17/24 15:58 UA Nitrite Last Edit by [employer] on 09/17/24 15:58 UA Urobilinogen 0.2 mg/dL Last Edit by [employer] on 09/17/24 15:58 UA Protein 15 mg/dL Last Edit by [employer] on 09/17/24 15:58 UA pH 5.5 Last Edit by [employer] on 09/17/24 15:58 UA Blood 80 Dameon/uL Last Edit by [employer] on 09/17/24 15:58 UA Specific [place] 1.030 Last Edit by [employer] on 09/17/24 15:58 UA Ketone Negative Last Edit by [employer] on 09/17/24 15:58 UA Bilirubin 0 mg/dL Last Edit by [employer] on 09/17/24 15:58 UA Glucose 0 mg/dL Last Edit by [employer] on 09/17/24 15:58 Results Reviewed Results Reviewed: Laboratory Last Values Urine pH (Auto) 5.5 09/17/24 15:57 Specific [place] (Auto) 1.030 09/17/24 15:57 Urine Protein (Auto) 15 mg/dL 09/17/24 15:57 Glucose (UA)(Auto) 0 mg/dL 09/17/24 15:57 Urine Ketones (Auto) Negative 09/17/24 15:57 Urine Blood (Auto) 80 Dameon/uL 09/17/24 15:57 Urine Bilirubin (Auto) 0 mg/dL 09/17/24 15:57 Urine Urobilinogen (Auto) 0.2 mg/dL 09/17/24 15:57 Leukocyte Esterase (Auto) 0 Therese/uL 09/17/24 15:57 Assessment & Plan Assessment & Plan (1) Intrinsic sphincter deficiency (ISD): Code(s): N36.42 - Intrinsic sphincter deficiency (ISD) Category: Medical Plan s/p Bulkamid 08/25/24. Doing well. FU in 6 months Orders: Orders AMB Urinalysis Automated Today Z13.9 - Encounter for screening, unspecified AMB Post Void Residual by ultrasound Today N39.3 - Stress incontinence (female) (male) Patient Instructions: The patient had an opportunity to ask questions regarding treatment plan. The patient expressed understanding and agreement with the above treatment plan. The patient is aware they should contact our office by phone for worsening of their current condition or the appearance of new symptoms. Compliance is encouraged with any medications and followup testing that is ordered. It is a privilege to be allowed the opportunity to participate in the urologic care of your patient. If you have any questions or concerns regarding treatment for the above conditions please do not hesitate to contact me. The office telephone contact is [phone]. This note is constructed in part using voice recognition software. While every effort has been made to ensure accuracy tourist information officer errors may have been included. Yours sincerely, Maximiliano Tobin MD Coding Level of Care Code Est Pt Level 3 (44241) Diagnoses Intrinsic sphincter deficiency (ISD) N36.42 CPT Codes Post Residual Void - PVR CPT Code: 07155-Ukbq Void Residual by ultrasound ([id number])
== END 2024-09-17 16:02 | disposition home or self-care (01) ==
LOC: HO.HUSH 16:07
PROVIDERS: PCP Internal Medicine; Visit Provider Urology
DX: Z13.9 Encounter for screening, unspecified (principal); N36.42 Intrinsic sphincter deficiency (ISD)
CPT/HCPCS: 99213

== ENCOUNTER → 2024-09-17 15:29 | Outpatient (BNVA) | payer BC, SELFPAY | PROVIDERS: PCP Internal Medicine; Visit Provider Urology | DX: N36.42 Intrinsic sphincter deficiency (ISD) (principal); N39.3 Stress incontinence (female) (male) | CPT/HCPCS: 51798; 81003 ==

== ENCOUNTER 2024-09-23 08:28 | Outpatient (AMB) | payer BC, SELFPAY ==
[2024-09-23 08:35] VITALS: BMI 29.4
--- NOTE | 2024-09-23 08:35 | A.OFFVIS_ITS ---
VS Expanded 09/23/24 08:35 09/23/24 08:45 Height 5 ft 9 in 5 ft 9 in Weight 199 lb 4.766 oz 199 lb BMI 29.4 29.4 Intake Visit Reasons: T2DM Allergies No Known Allergies [No Known Allergies*] Allergy (Verified 09/17/24 15:55) Nutrition Presentation Details: Pt presents for MNT for T2DM BS Monitoring Most Recent Diabetes Results: Microalb/Creat Ratio 9.8 ug/mg cr (<30) 09/07/24 Cholesterol 121 mg/dL (<200) 09/07/24 HDL Cholesterol 29 mg/dL (>40) L 09/07/24 Triglycerides 64 mg/dL (<150) 09/07/24 Creatinine 0.66 mg/dL (0.5-1.4) 09/07/24 Blood Urea Nitrogen 17 mg/dL (9-16) H 09/07/24 Sodium 138 mmol/L (135-145) 09/07/24 Potassium 3.9 mmol/L (3.3-5.1) 09/07/24 Chloride 109 mmol/L (96-108) H 09/07/24 Carbon Dioxide 23 mmol/L (22-29) 09/07/24 Calcium 8.6 mg/dL (8.4-10.2) 09/07/24 AST 20 U/L (5-31) 09/07/24 ALT 29 U/L (0-31) 09/07/24 Total Protein 7.3 g/dL (6.5-8.0) 09/07/24 Albumin 4.1 g/dL (3.5-5.0) 09/07/24 [id number] Equation Height: 5 ft 9 in Weight: 199 lb Resting Metabolic Rate: 1649.16 Calculated Activity Level: Sedentary Calories Needed to Maintain Weight: 1978.99 Diagnosis Nutrition problem #1: food nutri know defi As related to (etiology) #1: diagnosis As evidenced by (sign/symptom) #1: knowledge deficit of diet [facility] Medical History Diabetes mellitus ADD (attention deficit disorder) Urge urinary incontinence Anxiety Reactive airway disease Surgical History History of wisdom tooth extraction H/O LEEP Family History Mother Arthritis Father Mental health disorder Essential hypertension Diabetes mellitus Stroke Social History Housing: House Alcohol intake: current Alcohol intake frequency: a few times a month Alcohol type: beer, wine and hard liquor Comment: medicated Patient Tobacco Use Status: Never used Tobacco e-Cigarette/Vaping Use: Never Used Second Hand Smoke Exposure: No service: No Current occupational status: employed Current occupational exposures/hazards: No Cognitive needs: No Hearing needs: No Vision needs: No Assessment & Plan Assessment & Plan (1) Diabetes mellitus: Code(s): E11.9 - Type 2 diabetes mellitus without complications Category: Medical Qualifiers: Diabetes mellitus type: type 2 Diabetes mellitus press tender long goods insulin use: without long-term use Diabetes mellitus complication status: without complication Qualified Code(s): E11.9 - Type 2 diabetes mellitus without complications Plan: Wt: 90 Kg ( 09/29 ) Est kcal needs as per MSJ: 8002-9524 (40% carb, 30% protein/fat) Est fluid needs as per 25-30 ml/d: 2700 Est prot per day as per 1 g/kg bw: 90 Recommend fiber intake : 8-10 g per day and gradually increase to 25-28 g per d ay for women and 35-38 g for men or as tolerated Recommend sodium intake per day : less than 2000 mg Educated patient on: ( R = reviewed V = verbalizes understanding N/R = needs review N/A = not applicable * Food sources of carbohydrate, adequate serving sizes and its role in various health conditions: R * Differences between complex carbohydrates a simple carbohydrates, role of fiber in diet: R * Lean protein sources of foods: R * Differences between types of fats and role in diet (mono on saturated fat fatty acids, saturated fatty acids, trans fats): R V N/R * Food sources of sodium in salt and healthy modifications for heart health in kidney health: R V R/V * Vitamins and minerals: R V N/R * Healthy plate method concept: R * Physical activity: Benefits a precaution: R V N/R * Hypoglycemia protocol (rule of 15): R * Dietary prevention of Hyperglycemia: R Patient Instructions: Choose whole grain foods, foods with fiber Reduce total carb per meals to less than 45 g following healthy plate method Reduce carb as snack to less than 20 g with lean protein foods Choose water , low sugar beverages Coding Level of Care Code Nutr Indiv Intake (02664) Diagnoses Type 2 diabetes mellitus without complication, without long-term current use of insulin E11.9 Diabetes mellitus type: type 2 Diabetes mellitus long-term insulin use: without long-term use Diabetes mellitus complication status: without complication Time Spent (min) 30
[2024-10-01 09:27] VITALS: BMI 29.4
== END 2024-09-23 09:08 | disposition home or self-care (01) ==
LOC: HO.ENCR 08:28
PROVIDERS: PCP Internal Medicine; Visit Provider Dietitian, Registered
DX: E11.9 Type 2 diabetes mellitus without complications (principal)

== ENCOUNTER → 2024-09-23 08:28 | Outpatient (BNVA) | payer BC, SELFPAY | PROVIDERS: PCP Internal Medicine; Visit Provider Dietitian, Registered | DX: E11.9 Type 2 diabetes mellitus without complications (principal); Z71.3 Dietary counseling and surveillance | CPT/HCPCS: 97802 ==

== ENCOUNTER 2024-10-28 08:54 | Outpatient (AMB) | payer BC, SELFPAY ==
[2024-10-28 09:01] VITALS: BMI 29.0
--- NOTE | 2024-10-28 09:01 | A.OFFVIS_ITS ---
VS Expanded 10/28/24 09:01 Height 5 ft 9 in Weight 196 lb 3.382 oz BMI 29.0 Intake Visit Reasons: T2DM Allergies No Known Allergies [No Known Allergies*] Allergy (Verified 09/17/24 15:55) Nutrition Presentation Details: Pt presents for MNT for f/u for T2DM Pt reports gradually incorporating foods with carbohydrates in her diet. Pt reports working on not skipping meals due to reduce appetite with Concerta Reports typically having 2 meals a day and snacks in between meals Pt currently on no DM meds, 14 d bg average at 114 mg/dl food frequency Fruits: 0-1/d fish: 0-1x/wk starches: 5-6 servings/d dairy: almond milk/yogurt 2-3 /d vegetables: 3serving/d denies vomiting /diarrhea physical activity: sedentary etoh/smoking: --- BS Monitoring Most Recent Diabetes Results: Microalb/Creat Ratio 9.8 ug/mg cr (<30) 09/07/24 Cholesterol 121 mg/dL (<200) 09/07/24 HDL Cholesterol 29 mg/dL (>40) L 09/07/24 Triglycerides 64 mg/dL (<150) 09/07/24 Creatinine 0.66 mg/dL (0.5-1.4) 09/07/24 Blood Urea Nitrogen 17 mg/dL (9-16) H 09/07/24 Sodium 138 mmol/L (135-145) 09/07/24 Potassium 3.9 mmol/L (3.3-5.1) 09/07/24 Chloride 109 mmol/L (96-108) H 09/07/24 Carbon Dioxide 23 mmol/L (22-29) 09/07/24 Calcium 8.6 mg/dL (8.4-10.2) 09/07/24 AST 20 U/L (5-31) 09/07/24 ALT 29 U/L (0-31) 09/07/24 Total Protein 7.3 g/dL (6.5-8.0) 09/07/24 Albumin 4.1 g/dL (3.5-5.0) 09/07/24 [facility] Medical History Diabetes mellitus ADD (attention deficit disorder) Urge urinary incontinence Anxiety Reactive airway disease Surgical History History of wisdom tooth extraction H/O LEEP Family History Mother Arthritis Father Mental health disorder Essential hypertension Diabetes mellitus Stroke Social History Housing: House Alcohol intake: current Alcohol intake frequency: a few times a month Alcohol type: beer, wine and hard liquor Comment: medicated Patient Tobacco Use Status: Never used Tobacco e-Cigarette/Vaping Use: Never Used Second Hand Smoke Exposure: No service: No Current occupational status: employed Current occupational exposures/hazards: No Cognitive needs: No Hearing needs: No Vision needs: No Assessment & Plan Assessment & Plan (1) Diabetes mellitus: Code(s): E11.9 - Type 2 diabetes mellitus without complications Category: Medical Qualifiers: Diabetes mellitus type: type 2 Diabetes mellitus terminal carman insulin use: without jail use Diabetes mellitus complication status: without complication Qualified Code(s): E11.9 - Type 2 diabetes mellitus without complications Plan: Wt: 90 Kg ( 09/29),89 kg ( 10/27) Est kcal needs as per MSJ: 1164-3396 (40% carb, 30% pro tein/fat) Est fluid needs as per 25-30 ml/d: 2700 Est prot per day as per 1 g/kg bw: 90 Recommend fiber intake : 8-10 g per day and gradually increase to 25-28 g per day for women and 35-38 g for men or as tolerated Recommend sodium intake per day : less than 2000 mg Educated patient on: ( R = reviewed V = verbalizes understanding N/R = needs review N/A = not applicable * Food sources of carbohydrate, adequate serving sizes and its role in various health conditions: R * Differences between complex carbohydrates a simple carbohydrates, role of fiber in diet: R * Lean protein sources of foods: R * Differences between types of fats and role in diet (mono on saturated fat fatty acids, saturated fatty acids, trans fats): R V N/R * Food sources of sodium in salt and healthy modifications for heart health in kidney health: R V R/V * Vitamins and minerals: R V N/R * Healthy plate method concept: R * Physical activity: Benefits a precaution: R V N/R * Hypoglycemia protocol (rule of 15): R * Dietary prevention of Hyperglycemia: R Patient Instructions: Continue working on having small meals throughout the day following healthy plate method Try high protein oatmeal for a small meal between breakfast and lunch engage in physical activity 10 minutes to start goal 30 min 3 times a week Coding Level of Care Code Nutr Indiv Subseq (78716) Diagnoses Type 2 diabetes mellitus without complication, without long-term current use of insulin E11.9 Diabetes mellitus type: type 2 Diabetes mellitus jail insulin use: without jail use Diabetes mellitus complication status: without complication Time Spent (min) 30
== END 2024-10-28 09:29 | disposition home or self-care (01) ==
LOC: HO.ENCR 08:55
PROVIDERS: PCP Internal Medicine; Visit Provider Dietitian, Registered
DX: E11.9 Type 2 diabetes mellitus without complications (principal)

== ENCOUNTER → 2024-10-28 08:54 | Outpatient (BNVA) | payer BC, SELFPAY | PROVIDERS: PCP Internal Medicine; Visit Provider Dietitian, Registered | DX: E11.9 Type 2 diabetes mellitus without complications (principal); Z71.3 Dietary counseling and surveillance | CPT/HCPCS: 97803 ==

== ENCOUNTER 2024-12-15 13:19 | Outpatient (AMB) | payer BC, SELFPAY ==
--- NOTE | 2024-12-15 08:02 | A.OFFVIS_ITS ---
Vital Signs 12/15/24 13:31 Height 5 ft 9 in Weight 191 lb 12.835 oz BMI 28.3 BP 118/78 Blood Pressure Location Rt brachial Position Sitting Pulse 100 Pulse Source Pulse Oximeter Pulse Oximetry (%) 100 Oxygen Delivery Method Room Air Intake Visit Reasons: T2DM Intake Note: Patient presents today for a follow-up on Type 2 Diabetes Mellitus: Last Diabetic eye exam was on: DUE Last Podiatry exam was on: Patient does not see a Compounding Technician Most recent HbA1c: 6.1%, 12/15/2024 Random Glucose- 72 mg/dL, Today Manufacturing Engineering Professor Required: No Accompanied by: Self / Same As Patient Allergies No Known Allergies [No Known Allergies*] Allergy (Verified 12/15/24 13:29) Medication List - Last Reconciled 12/15/24 by Kyara Soriano NP blood sugar diagnostic (FreeStyle Lite Strips) Use 1 test strip once a day blood-glucose meter (FreeStyle Lite Meter kit) As directed blood-glucose sensor (FreeStyle Aditi 3 Plus Sensor device) for continous use change every 15 days clonidine HCl 0.1 mg PO BEDTIME escitalopram oxalate (Lexapro) 10 mg PO DAILY hydroxyzine HCl 25 mg PO BID PRN 30 days lancets (FreeStyle Lancets) Use 1 lancet once a day levonorgestrel (Mirena) device intrauterine methylphenidate HCl ER (Concerta) 54 mg PO QAM HPI Comments Details: 39 YO female who is seen in f/u for T2DM. She was seen as a new consult 3 months ago. Most recent A1C 6.1% in the office today. Glucose on fingerstick today as 72. Greestyle aditi was in the 120's and on repeat after 14 carb gram of gingerale was 147 by sensor. Initially diagnosed with T2DM in March 2024 Was initially started on treatment with metformin Current regimen: metformin 500mg bid Had nausea and diarrhea which never resolved and was stopped 4 months ago Pioglitizone was stopped earlier this year at the time of consult. . Reports low sugars once 57 Treats lows with sugar Most recent A1C 5.8, down from prior 8% on 02/25/2025. Family history of T2DM in Father. No retinopathy: Has eyes checked every other year , last eye exam 2022 should schedule Occasional neuropathy in the past none now does not see podiatry complaints of dry skin uses urea and a moisturizer No nephropathy, not on Jr inhibitor or Arb 25.0 09/07/24 eGFR>60 Not on statin Last LDL 100 as measured on 09/29. Denies CAD. 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 and does walk throughout the day He has seen both the Katy Mckeon RD and Shelley Galan CDE in our office [facility] Medical History Diabetes mellitus ADD (attention deficit disorder) Urge urinary incontinence Anxiety Reactive airway disease Surgical History History of wisdom tooth extraction H/O LEEP Family History Mother Arthritis Father Mental health disorder Essential hypertension Diabetes mellitus Stroke Social History Housing: House Alcohol intake: current Alcohol intake frequency: a few times a month Alcohol type: beer, wine and hard liquor Comment: medicated Patient Tobacco Use Status: Never used Tobacco e-Cigarette/Vaping Use: Never Used Second Hand Smoke Exposure: No service: No Current occupational status: employed Current occupational exposures/hazards: No Cognitive needs: No Hearing needs: No Vision needs: No Physical Exam Vital Signs: Last Vital Signs Pulse 100 12/15/24 13:31 BP 118/78 12/15/24 13:31 Pulse Ox 100 12/15/24 13:31 Oxygen Delivery Method Room Air 12/15/24 13:31 BMI result Body Mass Index 28.3 Const Other: Absence of Cushingoid features. Absence of acromegalic features. Neck exam reveals nl size thyroid about 15 gms. No thyroid nodules palpable. Heart S1 S2, Reg R/R. No M/R G. Skin exam reveals absence of vitiligo or acanthosis nigricans. Visual exam of foot performed. No ulcerations or open lesions. No inter digit maceration or fissuring. No onychomycosis, no callouses. Results AMB Hemoglobin A1c AMB Hemoglobin A1c 6.1 % Last Edit by ROXANNA Santillan on 12/15/24 13:46 Results Reviewed Results Reviewed: Laboratory Last Values Glucose (Clinic) 72 mg/dL (60-115) 12/15/24 13:35 Hgb A1c (Clinic) 6.1 % (4.0-6.0) H 12/15/24 13:39 Assessment & Plan Assessment & Plan (1) Diabetes mellitus: Code(s): E11.9 - Type 2 diabetes mellitus without complications Category: Medical Qualifiers: Diabetes mellitus complication status: without complication Diabetes mellitus long filler cigar roller machine insulin use: without fpc use Diabetes mellitus type: type 2 Qualified Code(s): E11.9 - Type 2 diabetes mellitus without complications Plan: 39-year-old female who was diagnosed with diabetes last year and lost 30 lb through healthy balanced eating an increased exercise is now down to an A1c of 6.1%. She can follow up with us p.r.n. but otherwise his released back to the care of her PCP. Her insurance is not covering her glucose sensor. I advised her that she does not need to use this but gave her 2 samples in the event she would like to follow her sugars for several weeks on a periodic basis. She was asked to check her sugar twice weekly once in the morning and once 2 hours postprandial. Targets were reviewed The patient had an opportunity to ask questions regarding treatment plan. The patient expressed understanding and agreement with the above treatment plan. The patient is aware they should contact our office by phone for worsening glucose readings or for any low blood sugars which may warrant a change in zaira betes medication. Compliance is encouraged with medications and any followup testing/consults which may have been ordered. Orders: Orders AMB Hemoglobin A1c Today E11.9 - Type 2 diabetes mellitus without complications Medications: Refilled blood sugar diagnostic (FreeStyle Lite Strips) Use 1 test strip once a day 100 ea 3RF E11.9 - Type 2 diabetes mellitus without complications lancets (FreeStyle Lancets) Use 1 lancet once a day 100 ea 3RF E11.9 - Type 2 diabetes mellitus without complications Patient Instructions: The patient was counseled to achieve a target A1C of 7% (154 avg). Fasting blood sugars should be 90-130 in the morning and less than 180 two hours after meals. Reviewed the relationship between poor diabetic control and the development of complications. Coding Level of Care Code Est Pt Level 4 (83545) Complex EM visit Add On G2211 Diagnoses Type 2 diabetes mellitus without complication, without long-term current use of insulin E11.9 Diabetes mellitus complication status: without complication Diabetes mellitus long filler cigar roller machine insulin use: without fpc use Diabetes mellitus type: type 2 Time Spent (min) 30 Comment Time spent reviewing labs/provider notes, face to face, chart doc
[2024-12-15 13:31] VITALS: BP 118/78; PULSE 100; O2SAT 100; BMI 28.3
[2024-12-15 13:41] LABS: Glucose, Whole Blood 72 mg/dL (60-115)
== END 2024-12-15 13:58 | disposition home or self-care (01) ==
LOC: HO.ENCR 13:20
PROVIDERS: PCP Internal Medicine; Visit Provider Nurse Practitioner Adult Health
DX: E11.9 Type 2 diabetes mellitus without complications (principal)
CPT/HCPCS: 99214

== ENCOUNTER → 2024-12-15 13:19 | Outpatient (BNVA) | payer BC, SELFPAY | PROVIDERS: PCP Internal Medicine; Visit Provider Nurse Practitioner Adult Health | DX: E11.9 Type 2 diabetes mellitus without complications (principal) | CPT/HCPCS: 82947; 83036 ==

== ENCOUNTER 2025-01-11 11:39 | Outpatient (AMB) | payer OTHER, SELFPAY ==
--- NOTE | 2025-01-11 11:39 | A.OFFVIS_ITS ---
Intake Visit Reasons: 6m follow up Intake Note: Patient presents today for 6m follow up Urology Medication: none Antibiotic Allergy: none Blood Thinner: none Resourcing Consultant Required: No Accompanied by: Self / Same As Patient Allergies No Known Allergies (No Known Allergies*) Allergy (Verified 01/11/25 11:40) HPI Comments Details: 01/11/25-- - The patient is a 39-year-old female presenting with a telehealth follow-up for stress urinary incontinence. - The patient underwent urethral bulking agent treatment for stress urinary incontinence on August 25, 2024. - She reports markedly improved symptoms since the procedure. - She has experienced no urinary tract infections recently. - History of type 2 diabetes mellitus is noted as a potential influencing factor. Urinary Symptoms Review - Significant improvement in stress urinary incontinence symptoms since last treatment with urethral bulking agent. - No recent urinary tract infections. - No reports of nocturnal symptoms, pain, or pressure. 09/17/24--S/P Bulkamid 08/25/24. Delfino states she is doing well, urine flow is slower, she states she has pushed a little. Denies urine leakage. Discuss to avoid pushing while urinating. FU in 6 months 06/23/24--Delfino is a very pleasant 39-year-old female patient of Dr. Farr. She has a past medical history of ADD and diabetes. She is being followed up on today via video telehealth for her stress incontinence. In discussion with the patient today she reports to be doing and feeling well. She reports coming to the office on Saturday and undergoing in office urodynamics with Dr. Cummings and will be moving forward with bulkamid procedure. Recent retroperitoneal ultrasound results reviewed with the patient today. Bilateral kidneys with no calculi, lesions, and or hydronephrosis. The bladder is well distended and normal. Bladder jets are demonstrated. Pre void bladder volume is proximally 250 mL. Postvoid bladder volume is proximally 20 mL. Normal retroperitoneal ultrasound. She continues to attempt managing her diabetes as she knows this is also not helpful for lower urinary tract symptoms as well as overall health and well-being. She discusses at length her longstanding history of stress incontinence over the last 6-8 years she has a history of 1 vaginal and the labor was quick. She otherwise denies urinary urgency, urinary frequency, nocturia, hematuria, dysuria, foul smelling urine, changes to urinary stream, flank pain, fever, and or chills. She otherwise offers no other issues or concerns at this time. PFSH Medical History Diabetes mellitus ADD (attention deficit disorder) Urge urinary incontinence Anxiety Reactive airway disease Surgical History History of wisdom tooth extraction H/O LEEP Family History Mother Arthritis Father Mental health disorder Essential hypertension Diabetes mellitus Stroke Social History Housing: House Alcohol intake: current Alcohol intake frequency: a few times a month Alcohol type: beer, wine and hard liquor Comment: medicated Patient Tobacco Use Status: Never used Tobacco e-Cigarette/Vaping Use: Never Used Second Hand Smoke Exposure: No service: No Current occupational status: employed Current occupational exposures/hazards: No Cognitive needs: No Hearing needs: No Vision needs: No Telehealth Telehealth Telehealth Platform: [employer] Location of provider rendering services: practice address Location of patient: address on file Patient Identification confirmed using: Name, : Yes Telehealth method: video Patient verbally consented to treatment: Yes Patient verbally consented to billing insurance company: Yes Patient informed of any privacy concerns related to visit: Yes Assessment & Plan Assessment & Plan (1) Intrinsic sphincter deficiency (ISD): Code(s): N36.42 - Intrinsic sphincter deficiency (ISD) Category: Medical Plan S/P Bulkamid, doing well. FU in one year Patient Instructions: The patient had an opportunity to ask questions regarding treatment plan. The patient expressed understanding and agreement with the above treatment plan. The patient is aware they should contact our office by phone for worsening of their current condition or the appearance of new symptoms. Compliance is encouraged with any medications and followup testing that is ordered. It is a privilege to be allowed the opportunity to participate in the urologic care of your patient. If you have any questions or concerns regarding treatment for the above conditions please do not hesitate to contact me. The office telephone contact is [phone]. This note is constructed in part using voice recognition software. While every effort has been made to ensure accuracy mannequin coloring artist errors may have been included. Yours sincerely, Maximiliano Tobin MD Scribe Plan - Not visible on output: Patient was informed and verbally consented to the use of an ambient scribe for clinic note documentation during this visit. Coding Level of Care Code Tele Est Pt Level 3 (33974) Diagnoses Intrinsic sphincter deficiency (ISD) N36.42
== END 2025-01-11 13:34 | disposition home or self-care (01) ==
LOC: HO.HUSH 11:39
PROVIDERS: PCP Internal Medicine; Visit Provider Urology
DX: N36.42 Intrinsic sphincter deficiency (ISD) (principal)
CPT/HCPCS: 99213

== ENCOUNTER → 2025-01-11 11:39 | Outpatient (BNVA) | payer OTHER, SELFPAY | PROVIDERS: PCP Internal Medicine; Visit Provider Urology ==